=== PATIENT | male | born 1950 | race Hispanic/Latino ===

== ENCOUNTER → 2018-08-10 | Outpatient (CLI) | payer OTHER, MEDICARE ==
[~2018-08-10] MED LIST: ACET-2123 PO; ADV250 IH; AEC81 PO; ATOR40TA71 PO; CLOP75TA32 PO; DULO30CA51 PO; FOLI1TAB15 PO; FURO-152 PO; ISOS30TA6 PO; MAGN400T6 PO; METO25TA6 PO; NITR0.4T SL; PANT40TA25 PO; POTA10TA14 PO; PRED20TA3 PO; TAMS-1 PO; THIA100T75 PO
[2018-08-10 16:11] LABS: CREATININE 0.7 mg/dL (0.5-1.5)
== END | disposition home or self-care (01) ==
LOC: LAB 15:23
PROVIDERS: ATTEND Internal Medicine
DX: J44.9 Chronic obstructive pulmonary disease, unspecified (principal)
CPT/HCPCS: 36415; 82565; 84520

== ENCOUNTER → 2018-08-14 | Outpatient (CLI) | payer OTHER, MEDICARE ==
[~2018-08-14] MED LIST changes: +ISOVUE-370 50ML VIAL IV ONE
== END | disposition home or self-care (01) ==
LOC: OIH 10:26
PROVIDERS: ATTEND Internal Medicine
DX: J44.9 Chronic obstructive pulmonary disease, unspecified (principal); J84.10 Pulmonary fibrosis, unspecified; I51.7 Cardiomegaly; I70.0 Atherosclerosis of aorta; N20.0 Calculus of kidney; M47.894 Other spondylosis, thoracic region; I10 Essential (primary) hypertension; E78.5 Hyperlipidemia, unspecified; I25.10 Atherosclerotic heart disease of native coronary artery without angina pectoris
CPT/HCPCS: 71260; Q9967

== ENCOUNTER → 2018-10-24 | Outpatient (CLI) | payer OTHER, MEDICARE ==
[~2018-10-24] MED LIST changes: -ISOVUE-370 50ML VIAL IV ONE
[2018-10-24 13:52] LABS: CREATININE 0.7 mg/dL (0.5-1.5); POTASSIUM 4.3 mmol/L (3.5-5.1)
== END | disposition home or self-care (01) ==
LOC: LAB 13:12
PROVIDERS: ATTEND Internal Medicine
DX: I11.9 Hypertensive heart disease without heart failure (principal)
CPT/HCPCS: 36415; 80048

== ENCOUNTER → 2018-11-29 | Outpatient (CLI) | payer OTHER, MEDICARE | END | disposition home or self-care (01) | LOC: RAH 09:05 | PROVIDERS: ATTEND Internal Medicine | DX: K76.89 Other specified diseases of liver (principal) | CPT/HCPCS: 76705 ==

== ENCOUNTER → 2019-01-25 | Outpatient (CLI) | payer OTHER, MEDICARE ==
[2019-01-25 12:40] LABS: BASOPHILS % (AUTO) 0.6 % (0.0-5.0); HEMATOCRIT 49.8 % (42-54); LYMPHOCYTES % (AUTO) 34.3 % (21.0-51.0); MEAN CORPUSCULAR HGB CONC 33.5 g/dL (32.0-36.0); MEAN CORPUSCULAR VOLUME 95.5 fL (79-99); NEUTROPHILS % (AUTO) 57.1 % (40.0-77.0); NUCLEATED RED BLOOD CELLS 0.1 % (0.0-0.19); PLATELET COUNT (AUTO) 209 K/uL (130-400); RED BLOOD CELL COUNT(AUTO) 5.22 MIL/uL (4.50-6.20); RED CELL DISTRIBUTION WIDTH 13.2 % (11.0-15.5); WHITE BLOOD COUNT (AUTO) 5.5 K/uL (4.8-10.8)
[2019-01-25 13:08] LABS: ALBUMIN 3.6 g/dL (3.5-5.0); BILIRUBIN,TOTAL 0.5 mg/dL (0.2-1.0); CREATININE 0.8 mg/dL (0.5-1.5); POTASSIUM 3.9 mmol/L (3.5-5.1); THYROID STIMULATING HORMONE 0.57 uIU/mL (0.36-3.74); TOTAL PROTEIN, SERUM 7.1 g/dL (6.0-8.3)
== END | disposition home or self-care (01) ==
LOC: LAB 12:08
PROVIDERS: ATTEND Internal Medicine
DX: I11.9 Hypertensive heart disease without heart failure (principal); E78.2 Mixed hyperlipidemia; N52.9 Male erectile dysfunction, unspecified; R53.83 Other fatigue; F32.9 Major depressive disorder, single episode, unspecified; I25.119 Atherosclerotic heart disease of native coronary artery with unspecified angina pectoris; N40.1 Benign prostatic hyperplasia with lower urinary tract symptoms; Z72.0 Tobacco use
CPT/HCPCS: 36415; 80053; 80061; 84153; 84443; 85025

== ENCOUNTER → 2019-06-26 | Outpatient (CLI) | payer OTHER, MEDICARE ==
[~2019-06-26] MED LIST changes: -DULO30CA51 PO; +DULO30CA52 PO
[2019-06-26 11:32] LABS: BASOPHILS % (AUTO) 0.6 % (0.0-5.0); EOSINOPHILS % (AUTO) 2.6 % (0.0-8.0); HEMATOCRIT 46.9 % (42-54); LYMPHOCYTES % (AUTO) 22.8 % (21.0-51.0); MEAN CORPUSCULAR HEMOGLOBIN 32.8 pg (27.0-33.0); MEAN CORPUSCULAR HGB CONC 34.1 g/dL (32.0-36.0); MEAN CORPUSCULAR VOLUME 96.4 fL (79-99); MONOCYTES % (AUTO) 4.9 % (3.0-13.0); NEUTROPHILS % (AUTO) 69.1 % (40.0-77.0); PLATELET COUNT (AUTO) 188 K/uL (130-400); RED BLOOD CELL COUNT(AUTO) 4.87 MIL/uL (4.50-6.20); RED CELL DISTRIBUTION WIDTH 13.3 % (11.0-15.5); WHITE BLOOD COUNT (AUTO) 9.6 K/uL (4.8-10.8)
[2019-06-26 11:55] LABS: ALBUMIN 3.1 g/dL (3.5-5.0); BILIRUBIN,TOTAL 0.8 mg/dL (0.2-1.0); CREATININE 0.7 mg/dL (0.5-1.5); POTASSIUM 3.5 mmol/L (3.5-5.1); THYROID STIMULATING HORMONE 0.76 uIU/mL (0.36-3.74); TOTAL PROTEIN, SERUM 6.4 g/dL (6.0-8.3)
== END | disposition home or self-care (01) ==
LOC: LAB 10:57
PROVIDERS: ATTEND Internal Medicine
DX: I25.10 Atherosclerotic heart disease of native coronary artery without angina pectoris (principal); I11.9 Hypertensive heart disease without heart failure; E78.2 Mixed hyperlipidemia; R53.83 Other fatigue; N52.9 Male erectile dysfunction, unspecified; N40.0 Benign prostatic hyperplasia without lower urinary tract symptoms
CPT/HCPCS: 36415; 80053; 80061; 82270; 84153; 84443; 85025

== ENCOUNTER → 2019-06-28 | Outpatient (CLI) | payer OTHER, MEDICARE | END | disposition home or self-care (01) | LOC: LAB 11:30 | PROVIDERS: ATTEND Internal Medicine | DX: R19.7 Diarrhea, unspecified (principal) | CPT/HCPCS: 83630; 87046; 87177 ==

== ENCOUNTER → 2020-07-03 | Outpatient (CLI) | payer OTHER, MEDICARE ==
[~2020-07-03] MED LIST changes: -MAGN400T6 PO; +MAGN400T8 PO; -PANT40TA25 PO; +PANT40TA54 PO
[2020-07-03 11:15] LABS: HEMOGLOBIN A1C 6.1 % (4.0-6.0)
[2020-07-03 11:20] LABS: BASOPHILS % (AUTO) 1.1 % (0.0-5.0); EOSINOPHILS % (AUTO) 2.5 % (0.0-8.0); LYMPHOCYTES % (AUTO) 30.9 % (21.0-51.0); MEAN CORPUSCULAR HEMOGLOBIN 32.2 pg (27.0-33.0); MEAN CORPUSCULAR HGB CONC 34.7 g/dL (32.0-36.0); MEAN CORPUSCULAR VOLUME 92.7 fL (79-99); MONOCYTES % (AUTO) 6.8 % (3.0-13.0); NEUTROPHILS % (AUTO) 58.2 % (40.0-77.0); PLATELET COUNT (AUTO) 205 K/uL (130-400); RED CELL DISTRIBUTION WIDTH 11.9 % (11.0-15.5); WHITE BLOOD COUNT (AUTO) 6.5 K/uL (4.8-10.8)
[2020-07-03 11:23] LABS: ALBUMIN 3.7 g/dL (3.5-5.0); BILIRUBIN,TOTAL 0.7 mg/dL (0.2-1.0); CREATININE 0.7 mg/dL (0.5-1.5); POTASSIUM 4.2 mmol/L (3.5-5.1); TOTAL PROTEIN, SERUM 7.6 g/dL (6.0-8.3)
== END | disposition home or self-care (01) ==
LOC: LAB 10:13
PROVIDERS: ATTEND Internal Medicine
DX: I11.9 Hypertensive heart disease without heart failure (principal); E78.2 Mixed hyperlipidemia; R73.01 Impaired fasting glucose; N40.1 Benign prostatic hyperplasia with lower urinary tract symptoms; N52.9 Male erectile dysfunction, unspecified
CPT/HCPCS: 36415; 80053; 80061; 82043; 83036; 84153; 85025

== ENCOUNTER → 2020-08-04 | Outpatient (CLI) | payer OTHER, MEDICARE ==
[~2020-08-04] MED LIST changes: +REGADENOSON 0.4 MG/5 ML PF SYG IVP SCH
== END | disposition home or self-care (01) ==
LOC: SHCH 08:19
PROVIDERS: ATTEND Internal Medicine Cardiovascular Disease
DX: R07.9 Chest pain, unspecified (principal)
CPT/HCPCS: 78452; 93017; 96374; A9500 ×2; J2785

== ENCOUNTER → 2021-02-02 | Outpatient (CLI) | payer OTHER, MEDICARE ==
[~2021-02-02] MED LIST changes: -ISOS30TA6 PO; +ISOS30TA92 PO; -REGADENOSON 0.4 MG/5 ML PF SYG IVP SCH
[2021-02-02 10:45] LABS: BASOPHILS % (AUTO) 0.8 % (0.0-5.0); EOSINOPHILS % (AUTO) 1.9 % (0.0-8.0); HEMATOCRIT 50.1 % (42-54); LYMPHOCYTES % (AUTO) 36.5 % (21.0-51.0); MEAN CORPUSCULAR HEMOGLOBIN 32.4 pg (27.0-33.0); MEAN CORPUSCULAR HGB CONC 33.9 g/dL (32.0-36.0); MEAN CORPUSCULAR VOLUME 95.6 fL (79-99); MONOCYTES % (AUTO) 7.6 % (3.0-13.0); NEUTROPHILS % (AUTO) 52.8 % (40.0-77.0); PLATELET COUNT (AUTO) 175 K/uL (130-400); RED BLOOD CELL COUNT(AUTO) 5.24 MIL/uL (4.50-6.20); RED CELL DISTRIBUTION WIDTH 12.6 % (11.0-15.5); WHITE BLOOD COUNT (AUTO) 5.2 K/uL (4.8-10.8)
[2021-02-02 10:54] LABS: HEMOGLOBIN A1C 6.1 % (4.0-6.0)
[2021-02-02 10:59] LABS: ALBUMIN 3.3 g/dL (3.5-5.0); BILIRUBIN,TOTAL 0.6 mg/dL (0.2-1.0); CREATININE 0.8 mg/dL (0.5-1.5); POTASSIUM 4.4 mmol/L (3.5-5.1); TOTAL PROTEIN, SERUM 6.7 g/dL (6.0-8.3)
== END | disposition home or self-care (01) ==
LOC: LAB 09:45
PROVIDERS: ATTEND Internal Medicine
DX: Z00.00 Encounter for general adult medical examination without abnormal findings (principal); R73.01 Impaired fasting glucose; E78.2 Mixed hyperlipidemia
CPT/HCPCS: 36415; 80053; 80061; 82043; 83036; 85025

== ENCOUNTER → 2021-03-16 | Outpatient (CLI) | payer OTHER, MEDICARE | LOC: DAH 10:00 → EDSTATUS 03-24 07:00 | PROVIDERS: ATTEND Internal Medicine Gastroenterology | DX: Z01.818 Encounter for other preprocedural examination (principal); Z86.010 Personal history of colon polyps; K29.90 Gastroduodenitis, unspecified, without bleeding; K31.89 Other diseases of stomach and duodenum; K21.9 Gastro-esophageal reflux disease without esophagitis; Z20.822 Contact with and (suspected) exposure to COVID-19 | CPT/HCPCS: C9803; U0003 ==

== ENCOUNTER → 2021-03-31 | Outpatient (CLI) | payer OTHER, MEDICARE | END | disposition home or self-care (01) | LOC: RAH 14:33 | PROVIDERS: ATTEND Nurse Practitioner Family | DX: L08.9 Local infection of the skin and subcutaneous tissue, unspecified (principal); M79.89 Other specified soft tissue disorders | CPT/HCPCS: 73590 ==

== ENCOUNTER 2021-04-21 07:21 | Day surgery (SDC) | payer OTHER, MEDICARE ==
[~2021-04-21] VITALS: Ht 162.6 cm; Wt 77.1 kg
[~2021-04-21 07:21] MED LIST changes: -ACET-2123 PO; +ACET325T51 PO; -ADV250 IH; -ATOR40TA71 PO; -DULO30CA52 PO; +FLUO20TA29 PO; -FOLI1TAB15 PO; +LOSA25TA41 PO; -MAGN400T8 PO; +METO100T14 PO; -METO25TA6 PO; -POTA10TA14 PO; -PRED20TA3 PO; +ROSU40TA21 PO; +SODIUM CHLORIDE 0.9% 1000ML 1,000 ML IV ONE; -THIA100T75 PO
[2021-04-21 07:48] VITALS: BP 128/73
== END 2021-04-21 09:00 | disposition home or self-care (01) ==
LOC: ENDO 07:21 → DAH 07:21 → ENDO 09:00
PROVIDERS: ATTEND Internal Medicine Gastroenterology
DX: Z86.010 Personal history of colon polyps (principal); Z20.822 Contact with and (suspected) exposure to COVID-19; Z53.8 Procedure and treatment not carried out for other reasons; K21.9 Gastro-esophageal reflux disease without esophagitis; K29.90 Gastroduodenitis, unspecified, without bleeding; K31.89 Other diseases of stomach and duodenum; F32.9 Major depressive disorder, single episode, unspecified; I25.119 Atherosclerotic heart disease of native coronary artery with unspecified angina pectoris; E78.5 Hyperlipidemia, unspecified; J45.909 Unspecified asthma, uncomplicated; J84.10 Pulmonary fibrosis, unspecified; Z79.01 Long term (current) use of anticoagulants; Z79.82 Long term (current) use of aspirin; Z79.899 Other long term (current) drug therapy; Z82.3 Family history of stroke; Z83.3 Family history of diabetes mellitus; Z98.890 Other specified postprocedural states
CPT/HCPCS: 87635; 93005; A4215; A4221; A4222; A4606; A4663; C9803; J7030

== ENCOUNTER 2021-06-23 08:10 | Day surgery (SDC) | payer OTHER, MEDICARE ==
[~2021-06-23] VITALS: Ht 160 cm; Wt 75.7 kg
[~2021-06-23 08:10] MED LIST changes: +0.9%NACL 1000ML 1,000 ML IV ONE; -SODIUM CHLORIDE 0.9% 1000ML 1,000 ML IV ONE
[2021-06-23 09:00] VITALS: BP 122/74
[2021-06-23] MEDS ORDERED: BACTSS PO (09:16)
[2021-06-23] MEDS ORDERED: ALBU8.5H8 IH (09:17)
[2021-06-23] MEDS ORDERED: PROPOFOL 10 MG/ML 20ML VIAL IV ONE (09:51)
[2021-06-23 10:15] VITALS: BP 120/97
[2021-06-23 10:20] VITALS: BP 97/45
[2021-06-23 10:45] VITALS: BP 128/73
[2021-06-23 10:52] VITALS: BP 130/70
[2021-06-23] MEDS ORDERED: IPRATROPIUM/ALBUTEROL SULFATE 3 ML SOLUTION IH SCH (11:00)
== END 2021-06-23 11:01 | disposition home or self-care (01) ==
LOC: ENDO 08:10 → DAH 08:10 → ENDO 11:01
PROVIDERS: ATTEND Internal Medicine Gastroenterology
DX: Z12.11 Encounter for screening for malignant neoplasm of colon (principal); Z20.822 Contact with and (suspected) exposure to COVID-19; K44.9 Diaphragmatic hernia without obstruction or gangrene; K64.0 First degree hemorrhoids; K29.50 Unspecified chronic gastritis without bleeding; K31.89 Other diseases of stomach and duodenum; K21.00 Gastro-esophageal reflux disease with esophagitis, without bleeding; K29.90 Gastroduodenitis, unspecified, without bleeding; K57.30 Diverticulosis of large intestine without perforation or abscess without bleeding; M79.7 Fibromyalgia; I25.119 Atherosclerotic heart disease of native coronary artery with unspecified angina pectoris; F32.9 Major depressive disorder, single episode, unspecified; E78.5 Hyperlipidemia, unspecified; J84.10 Pulmonary fibrosis, unspecified; Z86.010 Personal history of colon polyps; Z79.01 Long term (current) use of anticoagulants
CPT/HCPCS: 43239; 87635; 88305; 88342; 94640; A4215 ×2; A4221; A4222; A4223; A4606; A4620; A4657; A4663; C9803; G0105; J2704; J7030; 45378

== ENCOUNTER → 2022-02-11 | Outpatient (CLI) | payer OTHER, MEDICARE ==
[~2022-02-11] MED LIST changes: -0.9%NACL 1000ML 1,000 ML IV ONE; -ACET325T51 PO; +ALBU8.5H8 IH; +BACTSS PO
[2022-02-11 10:58] LABS: BASOPHILS % (AUTO) 0.9 % (0.0-5.0); EOSINOPHILS % (AUTO) 1.9 % (0.0-8.0); HEMATOCRIT 49.5 % (42-54); LYMPHOCYTES % (AUTO) 29.4 % (21.0-51.0); MEAN CORPUSCULAR HEMOGLOBIN 32.7 pg (27.0-33.0); MEAN CORPUSCULAR HGB CONC 34.1 g/dL (32.0-36.0); MEAN CORPUSCULAR VOLUME 95.7 fL (79-99); MONOCYTES % (AUTO) 7.3 % (3.0-13.0); NEUTROPHILS % (AUTO) 60.1 % (40.0-77.0); PLATELET COUNT (AUTO) 175 K/uL (130-400); RED BLOOD CELL COUNT(AUTO) 5.17 MIL/uL (4.50-6.20); RED CELL DISTRIBUTION WIDTH 12.8 % (11.0-15.5); WHITE BLOOD COUNT (AUTO) 6.7 K/uL (4.8-10.8)
[2022-02-11 11:11] LABS: ALBUMIN 3.6 g/dL (3.5-5.0); BILIRUBIN,TOTAL 0.8 mg/dL (0.2-1.0); CREATININE 0.7 mg/dL (0.5-1.5); POTASSIUM 3.7 mmol/L (3.5-5.1); TOTAL PROTEIN, SERUM 7.2 g/dL (6.0-8.3)
== END | disposition home or self-care (01) ==
LOC: LAB 10:10
PROVIDERS: ATTEND Internal Medicine
DX: N40.1 Benign prostatic hyperplasia with lower urinary tract symptoms (principal); I11.0 Hypertensive heart disease with heart failure; E78.2 Mixed hyperlipidemia; R73.01 Impaired fasting glucose; R73.03 Prediabetes
CPT/HCPCS: 36415; 80053; 80061; 82043; 83036; 84153; 84402; 84403; 85025

== ENCOUNTER 2022-07-01 07:18 | Day surgery (SDC) | payer OTHER, MEDICARE ==
[2022-06-29 10:05] LABS: BASOPHILS % (AUTO) 0.5 % (0.0-5.0); EOSINOPHILS % (AUTO) 2.8 % (0.0-8.0); HEMATOCRIT 48.7 % (42-54); LYMPHOCYTES % (AUTO) 29.4 % (21.0-51.0); MEAN CORPUSCULAR HGB CONC 33.9 g/dL (32.0-36.0); MEAN CORPUSCULAR VOLUME 97.4 fL (79-99); MONOCYTES % (AUTO) 6.5 % (3.0-13.0); NEUTROPHILS % (AUTO) 60.5 % (40.0-77.0); PLATELET COUNT (AUTO) 168 K/uL (130-400); RED CELL DISTRIBUTION WIDTH 12.9 % (11.0-15.5); WHITE BLOOD COUNT (AUTO) 7.4 K/uL (4.8-10.8)
[2022-06-29 10:14] LABS: APPEARANCE,URINE CLEAR (CLEAR); BILIRUBIN,URINE NEGATIVE (NEGATIVE); COLOR,URINE YELLOW (YELLOW); GLUCOSE, URINE (UA) NEGATIVE (NEGATIVE); KETONES,URINE NEGATIVE (NEGATIVE); LEUKOCYTE ESTERASE ,URINE NEGATIVE (NEGATIVE); NITRATE,URINE NEGATIVE (NEGATIVE); OCCULT BLOOD,URINE NEGATIVE (NEGATIVE); PH,URINE 5.5 (5.0-8.0); PROTEIN,URINE NEGATIVE (NEGATIVE); UROBILINOGEN,URINE 0.2 mg/dL (0.2-1.0)
[2022-06-29 10:15] LABS: CREATININE 0.8 mg/dL (0.5-1.5); POTASSIUM 3.7 mmol/L (3.5-5.1)
[2022-06-29 10:19] LABS: PROTHROMBIN TIME 10.9 SEC (9.6-11.6)
[2022-06-29 10:21] LABS: PARTIAL THROMBOPLASTIN TIME 27.3 SEC (26.3-35.5)
[2022-06-30 11:13] VITALS: BP 143/77
[2022-07-01] VITALS (10 sets, daily range): BP systolic 114–163; BP diastolic 69–83
[~2022-07-01] VITALS: Ht 167.6 cm; Wt 79.4 kg
[~2022-07-01 07:18] MED LIST changes: -BACTSS PO; +CETI10TA57 PO; +DULO30CA52 PO; +FAMO20TA8 PO; -FLUO20TA29 PO; -ISOS30TA92 PO; +METO-409 PO; -METO100T14 PO; +NINT100C PO; +RANO10005 PO; +SOLU-MEDROL 125MG VIAL IVP SCH; +advair IH
[2022-07-01] MEDS ORDERED: 0.9%NACL 1000ML 1,000 ML IV ONE (10:09)
[2022-07-01] MEDS ORDERED: LIDOCAINE HCL 1% 20 ML VIAL ONE (11:29)
[2022-07-01] MEDS ORDERED: NITROGLYCERIN 50MG VIAL ONE (11:29)
[2022-07-01] MEDS ORDERED: HEPARIN 10,000 UNIT/10ML (1,000 UNIT/ML) VIAL ONE (11:29)
[2022-07-01] MEDS ORDERED: IOHEXOL-350 50ML VIAL IV ONE (11:29)
[2022-07-01] MEDS ORDERED: MIDAZOLAM HCL 1 MG/ML 2ML VIAL ONE (11:30)
[2022-07-01] MEDS ORDERED: FENTANYL CITRATE PF 50 MCG/1 ML 2ML VIAL ONE (11:30)
[2022-07-01] MEDS ORDERED: IOHEXOL 350 MG/ML 100ML INFUS..BTL IV ONE (11:30)
[2022-07-01] MEDS ORDERED: DiphenhydrAMINE HCL 50 MG/ML VIAL ONE (11:42)
[2022-07-01] MEDS ORDERED: DEXTROSE 50%-WATER 50 ML DISP.SYRIN IV PRN (12:30)
[2022-07-01] MEDS ORDERED: GLUCAGON 1MG KIT 1 MG ML IM PRN (12:30)
[2022-07-01] MEDS ORDERED: 0.9%NACL 1000ML 1,000 ML IV SCH (12:30)
== END 2022-07-01 16:10 | disposition home or self-care (01) ==
LOC: DAH 07:18
PROVIDERS: ATTEND Internal Medicine Cardiovascular Disease
DX: I25.118 Atherosclerotic heart disease of native coronary artery with other forms of angina pectoris (principal); J84.10 Pulmonary fibrosis, unspecified; J98.4 Other disorders of lung; I10 Essential (primary) hypertension; E78.5 Hyperlipidemia, unspecified; I25.2 Old myocardial infarction; Z95.5 Presence of coronary angioplasty implant and graft; Z82.49 Family history of ischemic heart disease and other diseases of the circulatory system; Z79.82 Long term (current) use of aspirin; Z79.01 Long term (current) use of anticoagulants; Z79.899 Other long term (current) drug therapy; Z98.890 Other specified postprocedural states
CPT/HCPCS: 80048; 85025; 85610; 85730; 81003; 36415; 71045; 93005; 93458; C1894 ×2; C1760; J1200; J3010; J7030; J2930; J2250; J1644; J3490; Q9967; A4215; A4222; A4221; A4663; A4216; A4606; Q9965; A4223 ×3; 99156; 99157

== ENCOUNTER → 2023-02-07 | Outpatient (CLI) | payer OTHER, MEDICARE ==
[~2023-02-07] MED LIST changes: -METO-409 PO; -SOLU-MEDROL 125MG VIAL IVP SCH
[2023-02-07 13:03] LABS: BASOPHILS % (AUTO) 0.4 % (0.0-5.0); EOSINOPHILS % (AUTO) 0.3 % (0.0-8.0); HEMATOCRIT 52.2 % (42-54); LYMPHOCYTES % (AUTO) 15.9 % (21.0-51.0); MEAN CORPUSCULAR HEMOGLOBIN 31.7 pg (27.0-33.0); MEAN CORPUSCULAR HGB CONC 33.1 g/dL (32.0-36.0); MEAN CORPUSCULAR VOLUME 95.8 fL (79-99); MONOCYTES % (AUTO) 3.9 % (3.0-13.0); NEUTROPHILS % (AUTO) 77.9 % (40.0-77.0); PLATELET COUNT (AUTO) 199 K/uL (130-400); RED BLOOD CELL COUNT(AUTO) 5.45 MIL/uL (4.50-6.20); WHITE BLOOD COUNT (AUTO) 7.6 K/uL (4.8-10.8)
[2023-02-07 13:11] LABS: HEMOGLOBIN A1C 6.1 % (4.0-6.0)
[2023-02-07 13:21] LABS: ALBUMIN 3.5 g/dL (3.5-5.0); CREATININE 0.8 mg/dL (0.5-1.5); POTASSIUM 4.2 mmol/L (3.5-5.1); TOTAL PROTEIN, SERUM 7.2 g/dL (6.0-8.3)
== END | disposition home or self-care (01) ==
LOC: LAB 12:11
PROVIDERS: ATTEND Clinical Nurse Specialist Family Health
DX: I11.0 Hypertensive heart disease with heart failure (principal); Z00.00 Encounter for general adult medical examination without abnormal findings; Z79.899 Other long term (current) drug therapy; R73.02 Impaired glucose tolerance (oral); N40.0 Benign prostatic hyperplasia without lower urinary tract symptoms
CPT/HCPCS: 36415; 80053; 80061; 82043; 83036; 84153; 84402; 84403; 85025

== ENCOUNTER → 2023-06-30 | Outpatient (CLI) | payer OTHER, MEDICARE | END | disposition home or self-care (01) | LOC: SHCH 13:52 | PROVIDERS: ATTEND Internal Medicine Cardiovascular Disease | DX: I08.3 Combined rheumatic disorders of mitral, aortic and tricuspid valves (principal); I11.9 Hypertensive heart disease without heart failure; I25.10 Atherosclerotic heart disease of native coronary artery without angina pectoris; E78.5 Hyperlipidemia, unspecified | CPT/HCPCS: 93306 ==

== ENCOUNTER 2023-08-26 11:36 | Emergency (ER) | payer OTHER, MEDICARE ==
[~2023-08-26] VITALS: Ht 162.6 cm; Wt 78.5 kg
[2023-08-26] MEDS ORDERED: ACETAMINOPHEN 325 MG TAB PO ONE (12:30)
[2023-08-26] MEDS ORDERED: ASPIRIN 325MG TAB PO ONE (12:30)
[2023-08-26 12:36] LABS: BASOPHILS # (AUTO) 0.07 K/uL (0.00-0.20); BASOPHILS % (AUTO) 0.5 % (0.0-5.0); EOSINOPHILS # (AUTO) 0.03 K/uL (0.00-0.70); EOSINOPHILS % (AUTO) 0.2 % (0.0-8.0); HEMATOCRIT 46.3 % (42-54); IMMATURE GRANULOCYTE ABSOLUTE 0.05 K/uL (0-1); LYMPHOCYTES # (AUTO) 1.3 K/uL (1.0-4.8); LYMPHOCYTES % (AUTO) 9.5 % (21.0-51.0); MEAN CORPUSCULAR HEMOGLOBIN 31.8 pg (27.0-33.0); MEAN CORPUSCULAR HGB CONC 33.5 g/dL (32.0-36.0); MEAN CORPUSCULAR VOLUME 95.1 fL (79-99); MONOCYTES # (AUTO) 0.8 K/uL (0.1-1.0); NEUTROPHILS # (AUTO) 11.7 K/uL (1.8-7.7); NEUTROPHILS % (AUTO) 83.4 % (40.0-77.0); PLATELET COUNT (AUTO) 176 K/uL (130-400); RED BLOOD CELL COUNT(AUTO) 4.87 MIL/uL (4.50-6.20); RED CELL DISTRIBUTION WIDTH 12.6 % (11.0-15.5)
[2023-08-26 12:54] LABS: RAPID GROUP A STREP negative (NEGATIVE)
[2023-08-26 13:06] LABS: INFLUENZA TYPE A Negative For Type A (NEGATIVE); INFLUENZA TYPE B Negative For Type B (NEGATIVE)
[2023-08-26 13:07] LABS: COVID19 (SARS ANTIGEN RAPID) PRESUMPTIVE NEGATIVE (NEGATIVE)
[2023-08-26 13:24] VITALS: TEMP 100.3
[2023-08-26 13:45] LABS: ALBUMIN 3.4 g/dL (3.5-5.0); BILIRUBIN,TOTAL 1.3 mg/dL (0.2-1.0); CREATININE 0.7 mg/dL (0.5-1.5); POTASSIUM 3.8 mmol/L (3.5-5.1); TOTAL PROTEIN, SERUM 6.9 g/dL (6.0-8.3)
[2023-08-26 13:54] LABS: B-TYPE NATRIURETIC PEPTIDE 20 pg/mL (0-100)
[2023-08-26] MEDS ORDERED: AZIT500T2 PO (14:18)
[2023-08-26] MEDS ORDERED: BENZ-39 PO (14:18)
[2023-08-26 15:26] VITALS: BP 152/75; PULSE 88; RESP 26; O2SAT 95
[2023-08-26 15:47] LABS: APPEARANCE,URINE CLEAR (CLEAR); BILIRUBIN,URINE NEGATIVE (NEGATIVE); COLOR,URINE LIGHT-YELLOW (YELLOW); GLUCOSE, URINE (UA) NEGATIVE (NEGATIVE); KETONES,URINE NEGATIVE (NEGATIVE); LEUKOCYTE ESTERASE ,URINE NEGATIVE Leu/uL (NEGATIVE); NITRATE,URINE NEGATIVE (NEGATIVE); OCCULT BLOOD,URINE NEGATIVE (NEGATIVE); PH,URINE 5.5 (5.0-8.0); PROTEIN,URINE NEGATIVE (NEGATIVE); UROBILINOGEN,URINE 0.2 mg/dL (0.2-1.0)
[2023-08-26 15:54] LABS: ADD UA MICROSCOPIC NO
== END 2023-08-26 15:42 | disposition home or self-care (01) ==
LOC: EDH 11:36
DX: J18.9 Pneumonia, unspecified organism (principal); M94.0 Chondrocostal junction syndrome [Tietze]; E78.00 Pure hypercholesterolemia, unspecified; I11.0 Hypertensive heart disease with heart failure; I50.9 Heart failure, unspecified; Z20.822 Contact with and (suspected) exposure to COVID-19; Z79.82 Long term (current) use of aspirin; Z79.899 Other long term (current) drug therapy; Z95.5 Presence of coronary angioplasty implant and graft; Z88.8 Allergy status to other drugs, medicaments and biological substances; Z98.890 Other specified postprocedural states
CPT/HCPCS: 36415; 71045; 80053; 81003; 83880; 84484; 85025; 85730; 87040; 87426; 87804; 87880; 93005

== ENCOUNTER 2024-12-18 11:05 | Inpatient (IN) | payer OTHER ==
[~2024-12-18] VITALS: Ht 162.6 cm; Wt 73.9 kg
[~2024-12-18 11:05] MED LIST changes: +BENZ-39 PO; +DILT120C89 PO; +ISOS30TA92 PO; +LOSA-418 PO; -LOSA25TA41 PO; -ROSU40TA21 PO; +ROSU40TA88 PO; +TICA90TA PO
--- NOTE | 2024-12-18 11:13 | ERN ---
ED Note History of Present Illness Stated Complaint: CHEST PAIN Chief Complaint: Chest Pain Time Seen by MD: 11:07 Dictation: PATIENT IS A 74-YEAR-OLD MALE COMING IN TODAY WITH COMPLAINTS OF ONSET OF LEFT ANTERIOR CHEST PAIN THAT DOES NOT RADIATE WITH NAUSEA ONSET3 HOURS PRIOR TO ARRIVAL. HE STATES HE HAS BEEN SHORT OF BREATH FOR SEVERAL DAYS AND HAS CURRENTLY OXYGEN ON IT3 L PER NASAL CANNULA FROM HOME O2. HE DENIES FEVER CHILLS BACK PAIN JAW PAIN ARM PAIN. 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 Prov:ALANA LEE MEDICATION CARE MANAGER 04/20/24 Benzonatate (Tessalon Perles) 100 Mg Cap, 100 MG PO TID PRN for COUGH for 7 Days, #21 CAP 0 Refills Prov:CAROLINE RAMOS DO 08/26/23 Reported Medications Rosuvastatin Calcium (Rosuvastatin Calcium) 40 Mg Tablet, 40 MG PO DAILY, TAB 04/18/24 Isosorbide Mononitrate (Isosorbide Mononitrate ER) 30 Mg Tab.er.24h, 30 MG PO DAILY, TAB 04/18/24 Famotidine (Famotidine) 20 Mg Tablet, 20 MG PO HS, TAB 06/30/22 Ranolazine (Ranolazine ER) 1,000 Mg Tab.er.12h, 1000 MG PO BID, TAB 06/30/22 [advair] No Conflict Check, 2 PUFF IH BID PRN for SHORTNESS OF BREATH/WHEEZING 06/30/22 Duloxetine HCl (Duloxetine HCl) 30 Mg Capsule.dr, 30 MG PO HS, CAP 06/30/22 Nintedanib Esylate (Ofev) 100 Mg Capsule, 100 MG PO BID, CAP 06/30/22 Cetirizine HCl (Cetirizine HCl) 10 Mg Tablet, 10 MG PO AM, TAB 06/30/22 Albuterol Sulfate (Proair Hfa) 8.5 Gm Hfa.aer.ad, 2 PUFF IH AD 06/23/21 Rosuvastatin Calcium (Rosuvastatin Calcium) 40 Mg Tablet, 40 MG PO AM, TAB 04/20/21 Nitroglycerin (Nitrostat) 0.4 Mg Tab.subl, 0.4 MG SL AD, TAB.SL 09/06/16 Furosemide (Lasix) 20 Mg Tablet, 20 MG PO DAILY, TAB 09/06/16 Aspirin (ASPIRIN 81 MG ECTAB) 81 Mg Ectab, 81 MG PO DAILY, TAB.EC 09/06/16 Pantoprazole Sodium (Pantoprazole Sodium) 40 Mg Tablet.dr, 40 MG PO AM, TAB 09/06/16 Clopidogrel Bisulfate (Clopidogrel) 75 Mg Tablet, 75 MG PO AM, TAB 09/06/16 Tamsulosin HCl (Flomax) 0.4 Mg/Cap Cap.er.24h, 0.4 MG PO DAILY, CAPSULE.DR 09/06/16 Past Medical History Past Medical History: Heart Disease, Hypertension, Other Additional Past Medical Hx: HX OF PULMONARY FIBROSIS Surgical History: Other Surgical History Other: HEART ATTACK X 2 Social History: Smokers, Lives alone RN Note Reviewed/Agreed w/PFSH: Yes Review of System Dictation CONSTITUTIONAL: NEGATIVE EXCEPT FOR HPI HEAD/FACE: NEGATIVE EXCEPT FOR HPI EENT: NEGATIVE EXCEPT FOR HPI RESPIRATORY: NEGATIVE EXCEPT FOR HPI SHORT OF BREATH LEFT LATERAL CHEST PAIN GASTROINTESTINAL/ABDOMINAL: NEGATIVE EXCEPT FOR HPI NAUSEA GENITOURINARY: NEGATIVE EXCEPT FOR HPI MUSCULOSKELETAL: NEGATIVE EXCEPT FOR HPI INTEGUMENTARY: NEGATIVE EXCEPT FOR HPI NEUROLOGICAL/PSYCH: NEGATIVE EXCEPT FOR HPI HEMATOLOGIC/LYMPHATIC: NEGATIVE EXCEPT FOR HPI ALL SYSTEMS NEGATIVE, EXCEPT NOTED ABOVE. 13 POINT REVIEW OF SYSTEMS ASSESSED AND ALL NEGATIVE EXCEPT FOR ABOVE. Initial Vital Sign VS Vital Signs Date Time Temp Pulse Resp B/P (MAP) Pulse Ox O2 Delivery O2 Flow Rate FiO2 12/18/24 11:06 98.8 90 18 75/41 93 Nasal Cannula 3.0 12/18/24 12:15 32 Physical Exam Dictation VITAL SIGNS REVIEWED GENERAL APPEARANCE: ALERT, ORIENTED X 3, MILD ACUTE DISTRESS, WELL DEVELOPED, NOURISHED. HEAD AND FACE: NON-TRAUMATIC. EYES: PERRL, PINK CONJUNCTIVAS, EYELID NO TRAUMA, ANTERIOR CHAMBER WITH ARCUS SENILIS. EARS: PINNAS INTACT AND NO SIGNS OF TRAUMA OR ERYTHEMA EAR CANALS CLEAR AND NO DISCHARGE TM NO ERYTHEMA NOSE: NO DISCHARGE, NO BLEEDING. OROPHARYNX: MOUTH NORMAL, TONGUE PINK, PHARYNX CLEAR,NO ERYTHEMA, TONSILS NO EXUDATES, NO ABSCESSES NOTED, MUCOUS MEMBRANE MOIST NECK: SUPPLE, NON-TENDER, NO THYROMEGALY, NO MASSES, NO JVD, NO BRUITS BREAST:DEFERRED CHEST:NO TENDERNESS, NO CREPITUS, NO PARADOXICAL MOVEMENT, NO RETRACTIONS LUNGS:CLEAR, WELL-VENTILATED, SYMMETRIC, NO RALES, NO WHEEZING, NO RHONCHI, NO STRIDOR, GOOD BREATH SOUNDS BILATERALLY HEART: REGULAR RATE, REGULAR RHYTHM, NO MURMUR, NO GALLOPS VASCULAR: NO PERIPHERAL EDEMA, ABDOMEN: SOFT, POSITIVE BOWEL SOUNDS, NONDISTENDED, NO GUARDING, NONTENDER, NO REBOUND, NO MASSES NO HEPATOMEGALY, NO SPLENOMEGALY, NO LOCK'S SIGN, NO HERNIAS. RECTAL: DEFERRED GENITAL: DEFERRED NEUROLOGICAL: NORMAL SPEECH, MOTOR FUNCTION INTACT, SENSORY FUNCTION INTACT MUSCULOSKELETAL: NECK NONTENDER, FULL RANGE OF MOTION, BACK NONTENDER, FULL RANGE OF MOTION, EXTREMITIES: NONTENDER, FULL RANGE OF MOTION SKIN: COLOR PINK, DRY, NO TURGOR, NO RASH, NO LACERATIONS, NO ABRASIONS, NO CONTUSIONS. LYMPHATIC: DEFERRED Results (Laboratory/Radiology) Laboratory/Radiology Laboratory Tests Test 12/18/24 11:37 White Blood Count 5.5 K/uL (4.8-10.8) Red Blood Count 4.57 MIL/uL (4.50-6.20) Hemoglobin 14.8 g/dL (14.0-18.0) Hematocrit 43.8 % (42-54) Mean Corpuscular Volume 95.8 fL (79-99) Mean Corpuscular Hemoglobin 32.4 pg (27.0-33.0) Mean Corpuscular Hemoglobin Concent 33.8 g/dL (32.0-36.0) Red Cell Distribution Width 12.9 % (11.0-15.5) Platelet Count 193 K/uL (130-400) Mean Platelet Volume 9.6 fL (7.5-10.5) Immature Granulocyte % (Auto) 0.7 % (0-1) Neutrophils (%) (Auto) 68.9 % (40.0-77.0) Lymphocytes (%) (Auto) 19.2 % (21.0-51.0) L Monocytes (%) (Auto) 7.5 % (3.0-13.0) Eosinophils (%) (Auto) 2.4 % (0.0-8.0) Basophils (%) (Auto) 1.3 % (0.0-5.0) Neutrophils # (Auto) 3.8 K/uL (1.8-7.7) Lymphocytes # (Auto) 1.1 K/uL (1.0-4.8) Monocytes # (Auto) 0.4 K/uL (0.1-1.0) Eosinophils # (Auto) 0.13 K/uL (0.00-0.70) Basophils # (Auto) 0.07 K/uL (0.00-0.20) Absolute Immature Granulocyte (auto 0.04 K/uL (0-1) Nucleated Red Blood Cells 0.0 % (0.0-0.19) Sodium Level 140 mmol/L (136-145) Potassium Level 3.7 mmol/L (3.5-5.1) Chloride Level 102 mmol/L (101-111) Carbon Dioxide Level 30 mmol/L (21-32) Blood Urea Nitrogen 11 mg/dL (7-18) Creatinine 0.9 mg/dL (0.5-1.3) Glomerular Filtration Rate Calc 90 mL/min (>90) Random Glucose 148 mg/dL (70-105) H Total Calcium 8.2 mg/dL (8.5-10.1) L Magnesium Level 1.60 mg/dL (1.80-2.40) L Troponin I High Sensitivity 25 ng/L (4-75) B-Type Natriuretic Peptide 16 pg/mL (0-100) Clinical Information: CHEST PAIN Comparison: None Findings: Pulmonary pattern is as before. No worrisome interval changes have taken place. Impression: Stable exam. Labs Reviewed?: Yes EKG Comment: EKG SINUS RHYTHM/HEART RATE 89/AXIS NORMAL/T-WAVE INVERSION LATERAL LEADS V4 THROUGH SIX REVIEW OF HISTORY OF EKG SHOWS NO SUCH T-WAVE INVERSION GOING BACK 2 YEARS NORMAL SINUS ED Course ED Course Orders Procedure Category Date Status Time Cbc With Differential LAB 12/18/24 Complete 11:09 B-Type Natriuretic LAB 12/18/24 Complete Peptide 11:09 Chest 1vw RAD 12/18/24 Resulted 11:09 12 Lead Ekg Tracing- EKG 12/18/24 Complete Technical 11:09 Magnesium LAB 12/18/24 Complete 11:09 Troponin I High LAB 12/18/24 Complete Sensitivity 11:09 Aspirin 325mg Tab PHA 12/18/24 Complete (Aspirin 325mg Tab) 11:30 Urinalysis Profile LAB 12/18/24 Logged 11:09 Basic Metabolic Panel LAB 12/18/24 Complete 11:09 Ondansetron 4mg Inj PHA 12/18/24 Complete (Zofran 4mg Inj) 11:30 Oxygen By Nc/Pulse Ox CPOE 12/18/24 Transmitted 11:09 0.9%Nacl 1000ml (Ns PHA 12/18/24 Complete 1000ml) 12:30 12 Lead Ekg Tracing- EKG 12/18/24 Complete Technical 12:05 Magnesium Oxide PHA 12/18/24 Complete (Mag-Ox) 15:30 0.9%Nacl 1000ml (Ns PHA 12/18/24 Complete 1000ml) 15:30 Acetaminophen 500mg PHA 12/18/24 Complete Tab (Tylenol 500mg T 16:00 Current Medications Medications (Trade) Dose Ordered Sig/Anne Route PRN Reason Start Time Stop Time Status Last Admin Dose Admin Acetaminophen (TYLenol 500MG TAB) 1,000 mg ONCE ONCE PO 12/18/24 16:00 12/18/24 16:01 DC Aspirin (Aspirin 325mg Tab) 325 mg ONCE ONCE PO 12/18/24 11:30 12/18/24 11:31 DC 12/18/24 11:44 Magnesium Oxide (Mag-Ox) 400 mg ONCE ONCE PO 12/18/24 15:30 12/18/24 15:31 DC 12/18/24 15:39 Ondansetron HCl (zoFRAN 4MG INJ) 4 mg ONCE ONCE IVP 12/18/24 11:30 12/18/24 11:31 DC 12/18/24 11:43 Sodium Chloride 1,000 ml @ 0 mls/hr ONCE ONCE IV 12/18/24 12:30 12/18/24 12:31 DC 12/18/24 13:57 Sodium Chloride 1,000 ml @ 0 mls/hr ONCE ONCE IV 12/18/24 15:30 12/18/24 15:31 DC 12/18/24 15:39 Vital Signs Date Time Temp Pulse Resp B/P (MAP) Pulse Ox O2 Delivery O2 Flow Rate FiO2 12/18/24 16:11 97.5 71 20 104/61 64 Nasal Cannula* 2 28 12/18/24 13:23 97.5 59 18 93/55 95 Nasal Cannula* 2 28 12/18/24 12:15 73 22 94/45 93 Nasal Cannula* 3 32 12/18/24 11:06 98.8 90 18 75/41 93 Nasal Cannula 3.0 1628/SPOKE WITH , REVIEWED EKG LABS CHEST X-RAY AND INTERVENTIONS FOR LOW BP. HE IS ALSO AWARE THAT MAGNESIUM WAS REPLACED AND AGREED TO ADMIT PATIENT. PATIENT IN NO PAIN AT THE PRESENT TIME HEART Score Response (Comments) Value EKG: Repolarization changes 1 Age: > 65yrs (+2) 2 Risk Factors: 3+ risk factors (+2) 2 Initial Troponin: Normal limit (0) 0 Total 5 Medical Decision Making MDM MEDICA MDM: DIFFERENTIAL DIAGNOSIS: ACS/AMI/ISCHEMIA/ELECTROLYTE IMBALANCE/DEHYDRATIO N/PNEUMONIA/BRONCHITIS/HYPOMAGNESEMIA RATIONALE: TESTS CONSIDERED AND ORDERED SECONDARY TO SHARED DECISION MAKING INCLUDE: LABS, ECG AND RADIOLOGY PREVIOUS OUTSIDE RECORDS REVIEWED: OLD ER VISITS. RISK OF COMPLICATION AND/OR MORBIDITY OR MORTALITY OF PATIENT MANAGEMENT: MILD MEDICATIONS-PER MEDICATION RECONCILIATION NEED FOR HOSPITALIZATION: PATIENT DOES MEET CRITERIA FOR HOSPITALIZATION. PATIENT WILL NEED TO CONTINUED CARDIAC ENZYMES AND EKG NEED FOR EMERGENCY MAJOR/MINOR SURGERY: NO THERE ARE NO SOCIAL CONCERNS WITH THIS PATIENT. PRESCRIPTION DRUG MANAGEMENT PRESCRIPTIONS WILL INCLUDE SYMPTOMATIC CARE PATIENT'S PRIOR EXTERNAL MEDICAL RECORDS FROM OTHER ER VISITS WERE REVIEWED BY ME INDICATED. PRIOR TESTING AND RESULTS FROM PREVIOUS VISITS WERE REVIEWED. PRIOR TESTS WERE TAKEN INTO ACCOUNT WITH MEDICAL DECISION MAKING AND RESOURCE UTILIZATION, INDEPENDENT HISTORIAN/HISTORIANS WERE USED TO OBTAIN COMPLETE MEDICAL HISTORY. I INDEPENDENTLY INTERPRETED THE TEST THAT WERE PERFORMED, RESULTS WERE REVIEWED BY ME AND CONSIDERED FINDINGS ON RADIOLOGY IF ORDERED. MEDICAL MANAGEMENT AND EXAMINATION INTERPRETATION DISCUSSIONS WERE HAD BY ME WITH OTHER QUALIFIED HEALTHCARE PROFESSIONALS INDICATED FOR THE PATIENT'S CARE. DX & DISP Disposition: Inpatient Departure Impression: Primary Impression: Acute coronary syndrome Additional Impressions: Abnormal EKG, Hypomagnesemia, Uncontrolled diabetes mellitus, Dyspnea on exertion Condition: Stable Referrals: PRISCILLA DONALD MD (PCP) Time of Disposition: 15:43 I have reviewed the case, and I agree with, Diagnosis and Plan MATTY SHEARER NP Dec 18, 2024 11:13
--- NOTE | 2024-12-18 11:22 | EKG ---
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
[2024-12-18] MEDS: ondanSETRON 4MG INJ IVP ONE (11:43)
[2024-12-18] MEDS: ASPIRIN 325MG TAB PO ONE (11:44)
--- NOTE | 2024-12-18 11:54 | NUR ---
PATIENT WAS GIVEN URINAL FOR URINE SAMPLE COLLECTION
--- NOTE | 2024-12-18 11:54 | NUR ---
PATIENT PLACED IN HALLWAY D, ON MONITOR, IS ON HOME 02 AT 3LPM
--- NOTE | 2024-12-18 12:12 | EKG ---
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
--- NOTE | 2024-12-18 12:17 | NUR ---
PT DIAPHORETIC, COMPLAINTS OF SOB AND CP, BP 65/43, CHARGE NURSE MADE AWARE, MOVED TO ED ROOM 5, SBAR REPORT GIVEN TO DAPHNEY RN, PLACED ON FULL MONITOR, EKG OBTAINED, 02 3 LTS. PLACED ON MODIFIED REVERSE TRANDELENBURG, ERMD NOTIFIED.
[2024-12-18 12:33] LABS: BASOPHILS # (AUTO) 0.07 K/uL (0.00-0.20); BASOPHILS % (AUTO) 1.3 % (0.0-5.0); EOSINOPHILS # (AUTO) 0.13 K/uL (0.00-0.70); EOSINOPHILS % (AUTO) 2.4 % (0.0-8.0); HEMATOCRIT 43.8 % (42-54); IMMATURE GRANULOCYTE ABSOLUTE 0.04 K/uL (0-1); LYMPHOCYTES # (AUTO) 1.1 K/uL (1.0-4.8); LYMPHOCYTES % (AUTO) 19.2 % (21.0-51.0); MEAN CORPUSCULAR HEMOGLOBIN 32.4 pg (27.0-33.0); MEAN CORPUSCULAR HGB CONC 33.8 g/dL (32.0-36.0); MEAN CORPUSCULAR VOLUME 95.8 fL (79-99); MONOCYTES # (AUTO) 0.4 K/uL (0.1-1.0); MONOCYTES % (AUTO) 7.5 % (3.0-13.0); NEUTROPHILS # (AUTO) 3.8 K/uL (1.8-7.7); NEUTROPHILS % (AUTO) 68.9 % (40.0-77.0); PLATELET COUNT (AUTO) 193 K/uL (130-400); RED BLOOD CELL COUNT(AUTO) 4.57 MIL/uL (4.50-6.20); RED CELL DISTRIBUTION WIDTH 12.9 % (11.0-15.5); WHITE BLOOD COUNT (AUTO) 5.5 K/uL (4.8-10.8)
[2024-12-18 12:39] LABS: CREATININE 0.9 mg/dL (0.5-1.3); MAGNESIUM 1.6 mg/dL (1.80-2.40); POTASSIUM 3.7 mmol/L (3.5-5.1)
--- NOTE | 2024-12-18 12:58 | HMCIMG ---
Exam Type: CHEST 1VW Clinical Information: CHEST PAIN Comparison: None Findings: Pulmonary pattern is as before. No worrisome interval changes have taken place. Impression: Stable exam.
[2024-12-18 13:23] LABS: B-TYPE NATRIURETIC PEPTIDE 16 pg/mL (0-100)
[2024-12-18] MEDS: 0.9%NACL 1000ML 1,000 ML IV ONE ×2 (13:57→15:39)
[2024-12-18] MEDS: MAGNESIUM OXIDE 400 MG TABLET PO ONE (15:39)
[2024-12-18] MEDS: acetaMINOPHEN 500 MG TABLET PO ONE (16:45)
--- NOTE | 2024-12-18 16:50 | NUR ---
DR COUCH AT BEDSIDE.
[2024-12-18] MEDS ORDERED: NITROGLYCERIN 0.4 MG SL TAB SL PRN (17:00)
[2024-12-18] MEDS ORDERED: PoTASSium chloRIDE 20MEQ/100ML 100 ML IV PRN (17:00)
[2024-12-18] MEDS ORDERED: hydrALAZine 20MG/ML VIAL IV PRN (17:00)
[2024-12-18] MEDS ORDERED: PoTASSium chloRIDE 20MEQ ER 20 MEQ ERTAB PO PRN (17:00)
[2024-12-18] MEDS ORDERED: PoTASSium chl 10% ELIXIR 20MEQ 20 MEQ/15 ML UDCUP PO PRN (17:00)
--- NOTE | 2024-12-18 17:09 | HP ---
[facility] HISTORY [facility] PHYSICAL Date of Service: Dec 18, 2024 Time of Service: 16:59 HISTORY OF PRESENT ILLNESS: Date of service: 12/18/2024 This 74-year-old male with past medical history of hypertension, hyperlipidemia, history of pulmonary fibrosis, BPH, history of CAD status post stent placement presented to the hospital secondary to chest pain. Patient states around 8:00 a.m. today he noted that he was having midsternal chest pain which would radiate towards his left side of the neck. He felt his pain was similar to prior episode of heart attack with associated pressure sensation. He took nitroglycerin x2 which relieved the pain. He stated that the pain lasted for more than an hour. Denied any paresthesias associated with the pain but he felt nauseated and had episodes of headache. Denied any fever, chills, shortness of breath. States he has history of pulmonary fibrosis and is respiratory symptoms are at baseline. Denied any abdominal pain, changes in his bowel movement. Denied any falls, syncopal episode. Patient took his medications in the morning prior to coming to the hospital. Labs showed white count of 5.5, hemoglobin was 14.8 Platelet count is 193 K, sodium was 140, potassium was 3.7, creatinine was 0.9 magnesium was 1.6, blood glucose was 148, troponin was negative x1, BNP was negative On presentation to the ED patient's blood pressure was noted to be 75/41, pipo ent was on3 L nasal cannula saturating 93%. Patient's heart rate was 73 REVIEW OF SYSTEMS CONSTITUTIONAL: Denies fevers, chills, or night sweats. No unintentional weight loss reported. NEUROLOGICAL: Denies headache, amaurosis fugax, motor weakness, sensory deficit, vertigo/spinning sensation, gait abnormalities, or tremors. ENT: No hearing loss, otalgia, otorrhea, rhinitis, rhinorrhea, hoarseness, or sore throat. CARDIOVASCULAR: Positive for chest pain at rest. Denied any PND, orthopnea, shortness for breath PULMONARY: Denies any shortness of breath,hemoptysis, pleuritic chest pain. Positive for cough GASTROINTESTINAL: Denies any type of dysphagia to either liquids or solids. Denies nausea, vomiting, pyrosis, early satiety, abdominal pain, diarrhea, constipation, or changes in stool consistency or caliber. Denies coffee-ground emesis, hematemesis, hematochezia, or melanotic stools. GENITOURINARY: Denies frequency, urgency, nocturia, hematuria or incontinence (Storage/Irritative symptoms.) Low urinary stream, straining to void, urinary intermittency or hesitancy, splitting of the voiding stream, terminal dribbling. ENDOCRINOLOGIC: Denies polyuria, polydipsia, polyphagia or heat/cold intolerances. HEMATOLOGIC: Denies thrombophilia/previous clots, or coagulopathy/bleeding disorders. ONCOLOGIC: Denies personal history of malignancy. DERMATOLOGIC: Denies rashes or pruritus. PSYCHIATRIC: Denies any suicidal or homicidal ideation. Denies hallucinations. PAST MEDICAL HISTORY: History of hypertension, hyperlipidemia, history of pulmonary fibrosis, BPH, history of CAD status post stent placement PAST SURGICAL HISTORY: History of heart catheterization PAST SOCIAL HISTORY: Denied smoking, alcohol, drug use FAMILY HISTORY: Denied any pertinent family history Coded Allergies: No Allergy Information Available (Verified Allergy, Unknown, 09/06/16) iodine (Unverified Allergy, Unknown, 08/01/20) PHYSICAL EXAM GENERAL APPEARANCE: The patient is awake, alert, and oriented, in no acute cardiopulmonary distress. NEUROLOGICAL: Cranial nerves II-XII grossly intact. Motor is 5/5 in bilateral upper and lower extremities proximal to distal. No sensory deficits. HEENT: Face is symmetric. Pupils are equal and reactive. Extraocular movements are intact. NECK: Supple. No JVD. No thyromegaly. No submental, submandibular, pre- /postauricular, occipital or supraclavicular lymphadenopathy. CHEST: Normal chest expansion. No Telemetry. LUNGS: He has basilar crackles present bilaterally CARDIOVASCULAR: Regular. S1 and S2 normal. No appreciable rubs, murmurs or gallops. ABDOMEN: Soft, nontender, and nondistended. There is no rebound, voluntary guarding, or rigidity. : Deferred. No Rider. EXTREMITIES: Non-edematous and not cyanotic. No clubbing. Good capillary refill. SKIN: No skin breakdown. Vital Sign (Last 24 Hours) 12/18/24 16:11 Temp 97.5 Pulse 71 Resp 20 B/P (MAP) 104/61 Pulse Ox 64 O2 Delivery Nasal Cannula* O2 Flow Rate 2 FiO2 28 LABS: Laboratory: Test 12/18/24 11:37 Range/Units White Blood Count 5.5 4.8-10.8 K/uL Red Blood Count 4.57 4.50-6.20 MIL/uL Hemoglobin 14.8 14.0-18.0 g/dL Hematocrit 43.8 42-54 % Mean Corpuscular Volume 95.8 79-99 fL Mean Corpuscular Hemoglobin 32.4 27.0-33.0 pg Mean Corpuscular Hemoglobin Concent 33.8 32.0-36.0 g/dL Red Cell Distribution Width 12.9 11.0-15.5 % Platelet Count 193 130-400 K/uL Mean Platelet Volume 9.6 7.5-10.5 fL Immature Granulocyte % (Auto) 0.7 0-1 % Neutrophils (%) (Auto) 68.9 40.0-77.0 % Lymphocytes (%) (Auto) 19.2 L 21.0-51.0 % Monocytes (%) (Auto) 7.5 3.0-13.0 % Eosinophils (%) (Auto) 2.4 0.0-8.0 % Basophils (%) (Auto) 1.3 0.0-5.0 % Neutrophils # (Auto) 3.8 1.8-7.7 K/uL Lymphocytes # (Auto) 1.1 1.0-4.8 K/uL Monocytes # (Auto) 0.4 0.1-1.0 K/uL Eosinophils # (Auto) 0.13 0.00-0.70 K/uL Basophils # (Auto) 0.07 0.00-0.20 K/uL Absolute Immature Granulocyte (auto 0.04 0-1 K/uL Nucleated Red Blood Cells 0.0 0.0-0.19 % Sodium Level 140 136-145 mmol/L Potassium Level 3.7 3.5-5.1 mmol/L Chloride Level 102 101-111 mmol/L Carbon Dioxide Level 30 21-32 mmol/L Blood Urea Nitrogen 11 7-18 mg/dL Creatinine 0.9 0.5-1.3 mg/dL Glomerular Filtration Rate Calc 90 >90 mL/min Random Glucose 148 H 70-105 mg/dL Total Calcium 8.2 L 8.5-10.1 mg/dL Magnesium Level 1.60 L 1.80-2.40 mg/dL Troponin I High Sensitivity 25 4-75 ng/L B-Type Natriuretic Peptide 16 0-100 pg/mL Current Medications Medications (Trade) Dose Ordered Sig/Anne Route PRN Reason Start Time Stop Time Status Last Admin Dose Admin Acetaminophen (TYLenol 500MG TAB) 500 mg Q6H PRN PO MILD PAIN (1-3) 12/18/24 17:00 01/17/25 16:59 UNV Enoxaparin Sodium (Lovenox) 30 mg DAILY SQ 12/19/24 09:00 01/18/25 08:59 UNV Famotidine (Pepcid 20mg Vial) 20 mg BID IV 12/18/24 21:00 01/17/25 20:59 UNV Morphine Sulfate (morPHINE 2MG SYG) 2 mg Q6H PRN IVP SEVERE PAIN (7-10) 12/18/24 17:00 12/25/24 16:59 UNV Nitroglycerin (Nitrostat) 0.4 mg AD PRN SL CHEST PAIN 12/18/24 17:00 01/17/25 16:59 UNV DIAGNOSTICS / RADIOLOGY: [ ] ASSESSMENT: Chest pain ACS rule out POA History of CAD status post stent placement in proximal to mid LAD History of pulmonary fibrosis Hypotension improved likely in setting of polypharmacy from multiple antihypertensive medications and nitroglycerin History of hypertension History of hyperlipidemia Iodine allergy PLAN: - patient to be admitted to medical-surgical unit with telemetry -in reference to chest pain. We will trend troponins q.6 hours to rule out ACS. We will also obtain echocardiogram. Secondary to patient's risk factors we will request consultation with Cardiology -obtain patient's home medications she will be reconciled once available. We will closely monitor blood pressure. We will restart antihypertensives accordingly -check TSH, A1c, D-dimer. If elevated we will consider V/Q scan in setting of Iodine in allergy - further orders per hospitalization course Advanced Care Planning Which of the following were discussed: Hospice care: Yes __ No _x_ Therapeutic options: Yes __ No __ Advance directives: Yes __ No __ Other discussions: Discussed with who?: patient (Patient, family or surrogates) Voluntary nature of this service was explained to the patient? Yes _x_ No __ Amount of time spent: 25 minutes PEARL Gray MD, MD Dec 18, 2024 17:09
--- NOTE | 2024-12-18 17:40 | NUR ---
PULMONOLOGY/BENCHMARK MADE AWARE OF PATIENT.
[2024-12-18 17:42] LABS: INR 1.07 (0.85-1.15); PROTHROMBIN TIME 11.9 SEC (9.6-11.6)
[2024-12-18 17:43] LABS: PARTIAL THROMBOPLASTIN TIME 29.6 SEC (26.3-35.5)
--- NOTE | 2024-12-18 18:14 | NUR ---
CARDIOLOGY (DR JACOBS) CONTACTED REGARDING INCREASING TROPONIN LEVEL AND HISTORY OF CARDIAC DISEASE.
[2024-12-18] MEDS: HEParin 5,000 UNIT VIAL IV PRN (18:46)
[2024-12-18] MEDS: HEParin 25,000 UNITS/250ML D5W 250 ML IV SCH (18:58)
--- NOTE | 2024-12-18 19:14 | NUR ---
HOSPITALIST CONTACTED REGARDING D-DIMER OF 902.HE WANTS THE PATIENT TO HAVE CT ANGIO CHEST PER PROTOCOL.
--- NOTE | 2024-12-18 19:49 | NUR ---
DR. COUCH CALLED AT THIS TIME TO CANCEL CTA DUE TO IODINE ALLERGY AND STATED HE WOULD ORDER A VQ SCAN FOR PATIENT INSTEAD DUE TO ELEVATED D-DIMER RESULTS. NO FURTHER ORDERS GIVEN AT THIS TIME./ROBERTO CARLOS
[2024-12-18] MEDS ORDERED: PRAS10TA9 PO (20:49)
[2024-12-18] MEDS: FAMOTIDINE 20MG VIAL IV SCH (21:22)
[2024-12-18] MEDS: MAGNESIUM 2GM PREMIX 50ML 50 ML IV PRN (22:31)
[2024-12-19] MEDS: acetaMINOPHEN 500 MG TABLET PO PRN (01:04)
[2024-12-19 01:26] LABS: INR 1.06 (0.85-1.15); PROTHROMBIN TIME 11.8 SEC (9.6-11.6)
[2024-12-19 01:49] LABS: PARTIAL THROMBOPLASTIN TIME > 139.0 SEC (26.3-35.5)
[2024-12-19] MEDS: morPHINE 2 MG SYG IVP PRN (02:54)
[2024-12-19 03:18] LABS: APPEARANCE,URINE CLEAR (CLEAR); BILIRUBIN,URINE NEGATIVE (NEGATIVE); COLOR,URINE YELLOW (YELLOW); GLUCOSE, URINE (UA) NEGATIVE (NEGATIVE); KETONES,URINE NEGATIVE (NEGATIVE); LEUKOCYTE ESTERASE ,URINE NEGATIVE Leu/uL (NEGATIVE); NITRATE,URINE NEGATIVE (NEGATIVE); OCCULT BLOOD,URINE NEGATIVE (NEGATIVE); PH,URINE 5.5 (5.0-8.0); PROTEIN,URINE NEGATIVE (NEGATIVE); UROBILINOGEN,URINE 0.2 mg/dL (0.2-1.0)
[2024-12-19 03:27] LABS: ADD UA MICROSCOPIC NO
[2024-12-19] MEDS ORDERED: ADVAIR IH PRN (04:00)
--- NOTE | 2024-12-19 07:44 | EKG ---
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
--- NOTE | 2024-12-19 08:30 | HMCIMG ---
Exam Type: NM PULMONARY/LUNG VENTILATION Clinical Information: elevated d dimer Comparison: None Findings: Anterior and posterior pulmonary ventilation scan was performed during and following inhalation of 8.8 mCi of technetium 99m DTPA gas and pulmonary perfusion images were performed following intravenous injection of 4.8 mCi of 99m Tc-labeled MAA. Ventilation: homogeneous distribution of the xenon gas in both lungs during the single breath and equilibrium phases. Symmetrical clearance of the xenon gas demonstrated in the wash out phase. No evidence of air trapping. Perfusion: Segmental size defect of the left lower lobe as well as subsegmental defects of the right upper and lower lobe. Impression: Intermediate probability for pulmonary embolism.
[2024-12-19 08:45] LABS: INR 1.02 (0.85-1.15); PROTHROMBIN TIME 11.4 SEC (9.6-11.6)
[2024-12-19] MEDS ORDERED: ENOXAPARIN SODIUM 30 MG/0.3 ML SQ SCH (09:00)
--- NOTE | 2024-12-19 09:23 | CONS ---
[facility] CONSULTATION NOTE Date Patient Seen: Dec 19, 2024 Time of Visit: 09:22 Supervising Physician: [Dr. Tay] Reason for Consultation: [Pulmonary fibrosis] Primary Care Physician: [Dr. Ortega] Outpatient Specialists: [Dr. Dejesus, Dr. Zaire Watt] Inpatient Consults: [[facility]] PROBLEM LIST: Acute on chronic hypoxic respiratory failure on supplemental oxygen at 5L Atypical chest pain, r/o ACS, PE NSTEMI, type 1 vs type 2 Acute hypotension, possible polypharmacy with multiple blood pressure medications Essential hypertension Former smoker Plan: Continue heparin drip Follow V/Q scan results Pending echocardiogram, renal U/S and venous doppler Supplemental oxygen as needed, baseline 3L Obtain sputum culture Start solumedrol Nebulizer prn BP management per primary/cardio Follow cardio rec Further management per primary HPI: [This is a 74-year-old male with a history of hypertension, hyperlipidemia, pulmonary fibrosis on home oxygen and Advair outpatient who presented to the ED for evaluation of left-sided anterior chest pain associated with nausea and vomiting with onset 3 hours prior to arrival. Patient admits worsening shortness of breaths previous days prior to admission. He admits a history of for heart attacks in the past as states similar symptoms. Admits chest pain currently 3/10, is worse with exertion. Troponin on admission was 25 and in creased to 362. Per ED report, patient has a new T-wave inversions not found on previous EKGs but otherwise normal sinus rhythm with a heart rate of 89. CXR on admission was consistent with pulmonary fibrosis. Patient admits cough with phlegm, has some end expiratory wheezing on auscultation bilaterally.] PAST MEDICAL HX: see above PAST SURGICAL HX: CAD with stents SOCIAL HISTORY: Former tobacco smoker, no ETOH, or illicit drug use Coded Allergies: No Allergy Information Available (Verified Allergy, Unknown, 09/06/16) iodine (Unverified Allergy, Unknown, 08/01/20) REVIEW OF SYSTEMS: 12 point ROS reviewed with patient. Pertinent positives mentioned above. Otherwise negative. PHYSICAL EXAM: GENERAL: alert, weak, awake oriented x 3 HEENT: EOMI, Sclera non icteric, moist mucosa NECK: Supple, no JVD, trachea midline LUNGS: Clear breath sounds bilaterally. No wheezes HEART: Regular rate and rhythm. Normal S1 and S2, without murmurs ABD: Abdomen soft, nontender. Bowel sounds present EXT: No clubbing cyanosis or edema NEURO: Alert and oriented to person, follows commands Vital Signs (last 8hr) Date Time Temp Pulse Resp B/P (MAP) Pulse Ox O2 Delivery O2 Flow Rate FiO2 12/19/24 09:16 98.6 84 20 144/75 92 Nasal Cannula* 5 40 12/19/24 07:34 98.6 97 20 181/114 98 Nasal Cannula* 3 32 12/19/24 07:33 98.6 98 19 200/124 99 Nasal Cannula* 3 32 12/19/24 04:17 98.6 83 19 147/77 91 Nasal Cannula* 5 40 LABS: Hematology Labs: Test 12/18/24 11:37 Range/Units White Blood Count 5.5 4.8-10.8 K/uL Red Blood Count 4.57 4.50-6.20 MIL/uL Hemoglobin 14.8 14.0-18.0 g/dL Hematocrit 43.8 42-54 % Mean Corpuscular Volume 95.8 79-99 fL Mean Corpuscular Hemoglobin 32.4 27.0-33.0 pg Mean Corpuscular Hemoglobin Concent 33.8 32.0-36.0 g/dL Red Cell Distribution Width 12.9 11.0-15.5 % Platelet Count 193 130-400 K/uL Mean Platelet Volume 9.6 7.5-10.5 fL Immature Granulocyte % (Auto) 0.7 0-1 % Neutrophils (%) (Auto) 68.9 40.0-77.0 % Lymphocytes (%) (Auto) 19.2 L 21.0-51.0 % Monocytes (%) (Auto) 7.5 3.0-13.0 % Eosinophils (%) (Auto) 2.4 0.0-8.0 % Basophils (%) (Auto) 1.3 0.0-5.0 % Neutrophils # (Auto) 3.8 1.8-7.7 K/uL Lymphocytes # (Auto) 1.1 1.0-4.8 K/uL Monocytes # (Auto) 0.4 0.1-1.0 K/uL Eosinophils # (Auto) 0.13 0.00-0.70 K/uL Basophils # (Auto) 0.07 0.00-0.20 K/uL Absolute Immature Granulocyte (auto 0.04 0-1 K/uL Nucleated Red Blood Cells 0.0 0.0-0.19 % Chemistry Labs: Test 12/19/24 08:14 12/18/24 23:24 12/18/24 11:37 Range/Units Whole Blood Glucose 105 70-110 MG/DL Troponin I High Sensitivity 362 *H 4-75 ng/L Sodium Level 140 136-145 mmol/L Potassium Level 3.7 3.5-5.1 mmol/L Chloride Level 102 101-111 mmol/L Carbon Dioxide Level 30 21-32 mmol/L Blood Urea Nitrogen 11 7-18 mg/dL Creatinine 0.9 0.5-1.3 mg/dL Glomerular Filtration Rate Calc 90 >90 mL/min Random Glucose 148 H 70-105 mg/dL Total Calcium 8.2 L 8.5-10.1 mg/dL Magnesium Level 1.60 L 1.80-2.40 mg/dL B-Type Natriuretic Peptide 16 0-100 pg/mL Coagulation Labs: Test 12/19/24 08:28 12/18/24 17:14 Range/Units Prothrombin Time 11.4 9.6-11.6 SEC Prothromb Time International Ratio 1.02 0.85-1.15 D-Dimer Quantitative (PE/DVT) 902 *H 0-500 ng/mL DIAGNOSTICS / RADIOLOGY RESULTS: [pending renal US, venous doppler and echo] PLAN NEURO: Minimize central acting medications as possible. Maintain fall precautions, adequate lighting during the day PULMONARY: Supplemental 02 as needed. Maintain aspiration precautions at all times CARDIOVASCULAR: Follow hemodynamics. Vital signs per facility protocol GI & NUTRITION: Continue with nutritional support. Continue stool softeners and laxatives as needed. KIDNEYS & ELECTROLYTES: Strict monitoring of intake, output and overall fluid balance. Avoid nephrotoxic medications to the extent possible. Medications to be dosed according to renal function. Monitor electrolytes and replace as needed ENDOCRINE: Maintain blood glucose between 100-180 at all times. Hypoglycemia protocol in place INFECTIOUS DISEASE: Trend temperature, WBC and procalcitonin level Follow cultures, deescalate antibiotics as soon as possible. Panculture if new onset fever ONCOLOGY/HEMATOLOGY/COAGULATION: Monitor for s/s of bleeding Monitor hemoglobin, coagulation studies as needed SKIN: Pressure ulcer prevention per facility protocol Specialty mattress ORTHO/REHAB: Continue PT/OT Prophylaxis: Continue GI and DVT prophylaxis Code Status: Full Resuscitation Disposition: TBD Other: Total patient care time exceeds 35 minutes excluding all procedures. ELIZABETH GRIFFITHS Dec 19, 2024 09:23
[2024-12-19 09:25] LABS: HEMATOCRIT 42.5 % (42-54); MEAN CORPUSCULAR HEMOGLOBIN 32.6 pg (27.0-33.0); MEAN CORPUSCULAR HGB CONC 33.9 g/dL (32.0-36.0); MEAN CORPUSCULAR VOLUME 96.2 fL (79-99); RED BLOOD CELL COUNT(AUTO) 4.42 MIL/uL (4.50-6.20); WHITE BLOOD COUNT (AUTO) 7.8 K/uL (4.8-10.8)
[2024-12-19] MEDS ORDERED: dilTIAZem 120MG SR CAP PO SCH (09:30)
[2024-12-19 09:39] LABS: HEMOGLOBIN A1C 5.9 % (4.0-6.0)
[2024-12-19 09:43] LABS: ALBUMIN 2.8 g/dL (3.5-5.0); BILIRUBIN,TOTAL 0.6 mg/dL (0.2-1.0); CREATININE 0.6 mg/dL (0.5-1.3); MAGNESIUM 1.9 mg/dL (1.80-2.40); POTASSIUM 3.7 mmol/L (3.5-5.1); TOTAL PROTEIN, SERUM 6.3 g/dL (6.0-8.3)
[2024-12-19 09:57] LABS: PARTIAL THROMBOPLASTIN TIME 106.5 SEC (26.3-35.5)
--- NOTE | 2024-12-19 10:15 | NUR ---
[id number] RESULT GIVEN BY Beegit, PTT IS LAT
--- NOTE | 2024-12-19 10:19 | EKG ---
[facility] Test Date: 2024-12-19 Test Time: 10:08:18 Pat Name: RIKY EDWARDS Department: [facility] Room: 430 Gender: M Director Child Abuse Therapy: 1006 : 1950 Requested By: ALVIN BERNAL Order Number: [id number] Reading MD: Nasir Herrmann Measurements Intervals [place] Rate: 79 P: 50 VA: 152 QRS: -4 QRSD: 88 T: -14 QT: 346 QTc: 397 Interpretive Statements Sinus rhythm Compared to ECG 12/18/2024 18:18:11 T-wave abnormality no longer present Electronically Signed On 12-21-2024 17:34:49 ELECTRICAL EQUIPMENT TECHNICIAN by Nasir Herrmann Please click the below link to view image of tracing.
[2024-12-19] MEDS: ASPIRIN 81MG CHEW TAB PO SCH (10:41)
[2024-12-19] MEDS: PRASUGREL HCL 10 MG TABLET PO SCH (10:41)
[2024-12-19] MEDS: atorVAStatin 40 MG TABLET PO SCH (10:41)
[2024-12-19] MEDS: ISOSORBIDE MONO 30MG SR TAB PO ONE (11:01)
[2024-12-19] MEDS: LoSARTan 50 MG TABLET PO ONE (11:01)
[2024-12-19] MEDS: dilTIAZem 120MG SR CAP PO ONE (11:02)
--- NOTE | 2024-12-19 12:23 | CONS ---
Cardiology Consult Note Attending Toll Gate Keeper: Dr. Ryan Deejsus Consulting Physician: Hospitalist Date of Service: 12/19/2024 Reason for Consult: Elevated troponin HPI: This is a 74y/o male with a past medical history of HTN, HLP, restrictive lung disease/IPF on home oxygen, CAD/WI in 2014, s/p PCI with CESAR placement in the mid RCA done in 2015, NSTEMI s/p PCI with CESAR placement (Xience Skypoint 3.5x23 mm) in the proximal-mid LAD, CESAR placement (Xience Skypoint 3.5x28 mm) in the mid LAD, and PTCA in the ostial Septal1 done on 04/19/2024, HFpEF (LVEF: 60-65% by echo done 04/18/2024), and BPH who presents with chest pain of 1 day in duration. The symptoms began spontaneously and over the ensuing timeframe were constant, and progressively worsened. The pain was described as stabbing in quality, 9/10 in intensity, and radiated to the bilateral shoulders, arms, back, and neck. The symptoms were not exacerbated or alleviated by anything. Associated symptoms include headache, dizziness, palpitations, shortness of breath, PND, pillow orthopnea, abdominal pain, nausea, and chills. Pertinent negatives include syncope, vomiting, weight gain, lower extremity swelling, diaphoresis, or fever. The patient's progression of symptoms prompted him to seek a higher level of care. While in the ED, laboratory data identified an elevated HS troponin I level. Cardiology was consulted for treatment recommendations. PMH: Listed above PSH: Listed above FH: Noncontributory SH: Denies alcohol, tobacco, or illicit drug use. Allergies: Coded Allergies: No Allergy Information Available (Verified Allergy, Unknown, 09/06/16) iodine (Unverified Allergy, Unknown, 08/01/20) Review of systems: General: As per the HPI HEENT: Denies changes in vision, earache or sore throat Neck: As per the HPI Cardio: As per the HPI Pulm: As per the HPI GI: As per the HPI MSK: As per the HPI Heme: Denies anemia, easy bruising, or bleeding. Neuro: As per the HPI Psyche: Denies anxiety, depression, or suicidal ideation. Physical Exam: Vital Signs Date Time Temp Pulse Resp B/P (MAP) Pulse Ox O2 Delivery O2 Flow Rate FiO2 12/19/24 11:03 98.6 76 18 150/68 94 Nasal Cannula* 5 40 General: Alert and oriented. NAD. Chronically ill appearing. HEENT: NC/AT. Oral mucosa is moist. Neck: No masses, JVD, or carotid bruits Lungs: NRD. SCM. Bilateral air entry. Fine rhonchi noted throughout. Cardio: Regular rate. Distant, but normal S1 and S2, +S4. No obvious murmurs, gallops, or rubs noted. Abdomen: Soft. NT. ND. Normal active bowel sounds x 4 quadrants. Extremities: Diminished throughout. Hyperpigmentation noted to the bilateral lower extremities with scabbing noted to the left shirley. No edema, clubbing, or cyanosis. Neuro: CN II-XII were grossly intact. No obvious focal deficits. Labs: Laboratory Tests Test 12/18/24 17:14 12/18/24 23:24 12/19/24 01:01 12/19/24 02:56 Range/Units Prothrombin Time 11.9 H 11.8 H 9.6-11.6 SEC Prothromb Time International Ratio 1.07 1.06 0.85-1.15 Activated Partial Thromboplast Time 29.6 > 139.0 #*H 26.3-35.5 SEC D-Dimer Quantitative (PE/DVT) 902 *H 0-500 ng/mL Troponin I High Sensitivity 149 *H 362 *H 4-75 ng/L Urine Color YELLOW YELLOW Urine Appearance CLEAR CLEAR Urine pH 5.5 5.0-8.0 Urine Specific [place] 1.020 1.001-1.031 Urine Protein NEGATIVE NEGATIVE mg/dL Urine Glucose (UA) NEGATIVE NEGATIVE mg/dL Urine Ketones NEGATIVE NEGATIVE mg/dL Urine Occult Blood NEGATIVE NEGATIVE Urine Nitrate NEGATIVE NEGATIVE Urine Bilirubin NEGATIVE NEGATIVE mg/dL Urine Urobilinogen 0.2 0.2-1.0 mg/dL Urine Leukocyte Esterase NEGATIVE NEGATIVE [place]/uL Test 12/19/24 08:14 12/19/24 08:28 12/19/24 09:00 Range/Units Whole Blood Glucose 105 70-110 MG/DL Prothrombin Time 11.4 9.6-11.6 SEC Prothromb Time International Ratio 1.02 0.85-1.15 Activated Partial Thromboplast Time 106.5 *H 26.3-35.5 SEC White Blood Count 7.8 # 4.8-10.8 K/uL Red Blood Count 4.42 L 4.50-6.20 MIL/uL Hemoglobin 14.4 14.0-18.0 g/dL Hematocrit 42.5 42-54 % Mean Corpuscular Volume 96.2 79-99 fL Mean Corpuscular Hemoglobin 32.6 27.0-33.0 pg Mean Corpuscular Hemoglobin Concent 33.9 32.0-36.0 g/dL Red Cell Distribution Width 13.0 11.0-15.5 % Platelet Count 185 130-400 K/uL Mean Platelet Volume 9.3 7.5-10.5 fL Nucleated Red Blood Cells 0.0 0.0-0.19 % Sodium Level 143 136-145 mmol/L Potassium Level 3.7 3.5-5.1 mmol/L Chloride Level 107 101-111 mmol/L Carbon Dioxide Level 30 21-32 mmol/L Blood Urea Nitrogen 12 7-18 mg/dL Creatinine 0.6 0.5-1.3 mg/dL Glomerular Filtration Rate Calc 102 >90 mL/min Random Glucose 105 70-105 mg/dL Hemoglobin A1c 5.9 4.0-6.0 % Estimated Average Glucose (eAG) 123 70-126 mg/dL Total Calcium 7.6 L 8.5-10.1 mg/dL Magnesium Level 1.90 1.80-2.40 mg/dL Total Bilirubin 0.6 0.2-1.0 mg/dL Aspartate Amino Transf (AST/SGOT) 31 10-37 U/L Alanine Aminotransferase (ALT/SGPT) 27 12-78 U/L Alkaline Phosphatase 64 50-136 U/L Troponin I High Sensitivity 288 *H 4-75 ng/L Total Protein 6.3 6.0-8.3 g/dL Albumin 2.8 L 3.5-5.0 g/dL Assessment: -Chest pain -Transient hypotension -Elevated D Dimer level, segmental defect of the left lower lobe, right upper lobe, and right lower lobe on VQ scan done 12/18/2024, with intermediate probability for PE -Elevated troponin (type II WI) -Electrolyte derangement -HTN -HLP -Restrictive lung disease/IPF on home oxygen -CAD/WI in 2014, s/p PCI with CESAR placement in the mid RCA done in 2016, NSTEMI s/p PCI with CESAR placement (Xience Skypoint 3.5x23 mm) in the proximal-mid LAD, CESAR placement (Xience Skypoint 3.5x28 mm) in the mid LAD, and PTCA in the ostial Septal1 done on 04/19/2024 -HFpEF (LVEF: 60-65% by echo done 04/18/2024) -BPH Plan: 1. Elevated D Dimer level, segmental defect of the left lower lobe, right upper lobe, and right lower lobe on VQ scan done 12/18/2024, with intermediate probability for PE -Stable -D Dimer: 902 -VQ scan 12/18/2024: Segmental size defect in the left lower lobe, right upper lobe, and right lower lobe. Intermediate probability for PE. -Recommend that the patient continue on the IV heparin infusion today, which should be transitioned to oral anticoagulation in the AM with Eliquis 10 mg BID x 7 days, followed by 5 mg BID thereafter. 2. Elevated troponin (type II WI) -Stable -Cardiac enzymes-HS troponin I: 25>149>362>288 -The elevated troponin is thought to be a type II WI (demand ischemia) induced by the transient hypotension and PE, and not secondary to ACS. -As a result, we do not recommend any further ischemic cardiac workup and instead we recommend treating the PE. See plan 1 for treatment recommendations. -In the meantime, we will stop aspirin and the patient will remain on prasugrel 10 mg daily and atorvastatin 80 mg QHS. -We will reassess the patient's hemodynamics in the AM in order to determine whether we can safely restart his home regimen of diltiazem CD 120 mg daily. -A 2D echocardiogram has been ordered to assess the patient's systolic/diastolic function. Thank you for this interesting consult and allowing us to participate in the care of your patient. This case was seen and discussed with my Supervising Physician, Dr. Ryan Dejesus, and the above mentioned plan was formulated and agreed upon. -Consult Note written by Lorne Bright, MSN, [employer], AGACNP-BS LORNE BRIGHT NP Dec 19, 2024 12:23
[2024-12-19 12:28] LABS: ABG BASE EXCESS 0.4 mmol/L (-2.0-3.0); ABG OXYGEN SATURATION 90.4 % (94.0-98.0); ABG PCO2 40 mmHg (35-48); ABG PH 7.412 (7.350-7.450); CARBON MONOXIDE 1.3 % (0.5-1.5); HHb 9.4; PO2, ARTERIAL BG 56.6 mmHg (83.0-108.0); VENT MODE, BG NC (ROOM AIR)
--- NOTE | 2024-12-19 14:05 | HMCIMG ---
Exam Type: US VENOUS DOPPLER BILATERAL Clinical Information: DVT Comparison: None Findings: The examination shows normal deep venous system. There is normal compressibility at all levels. There is no intraluminal clot. There is no occlusion. Adequate response is obtained on augmentation. Impression: No evidence of DVT.
--- NOTE | 2024-12-19 15:11 | NUR ---
DCP: HOME Sw met with pt and his daughter Caryn Treviño [phone]. Pt is legally to Lynette Frost [phone], but they live separately in same apt complex. Pt is independent of ADLS, no DME or in home care services. PCP is Calvin Ortega and use [facility] Gonzalez for rx. Educated on MPOA. Pt ok with making decision for hi. Addendum: 12/19/24 at 1514 by DIANE THOMPSON Amended: Links added.
--- NOTE | 2024-12-19 16:17 | NUR ---
REPORT GIVEN TO ESTELLA NURSE AT 1415 PT STABLE NO DISTRESS, VITAS WNL NO C/O PAIN NOW, PT TRANSFERRED BY BED WITH PERSONAL BELONGINGS.
--- NOTE | 2024-12-19 16:51 | PN ---
[facility] PROGRESS NOTE Date of Service: Dec 19, 2024 Time of Service: 16:44 SUBJECTIVE: This 74-year-old male with past medical history of hypertension, hyperlipidemia, history of pulmonary fibrosis, BPH, history of CAD status post stent placement presented to the hospital secondary to chest pain. Patient states around 8:00 a.m. today he noted that he was having midsternal chest pain which would radiate towards his left side of the neck. He felt his pain was similar to prior episode of heart attack with associated pressure sensation. He took nitroglycerin x2 which relieved the pain. He stated that the pain lasted for more than an hour. Denied any paresthesias associated with the pain but he felt nauseated and had episodes of headache. Denied any fever, chills, shortness of breath. States he has history of pulmonary fibrosis and is respiratory symptoms are at baseline. Denied any abdominal pain, changes in his bowel movement. Denied any falls, syncopal episode. Patient took his medications in the morning prior to coming to the hospital. Labs showed white count of 5.5, hemoglobin was 14.8 Platelet count is 193 K, sodium was 140, potassium was 3.7, creatinine was 0.9 magnesium was 1.6, blood glucose was 148, troponin was negative x1, BNP was negative On presentation to the ED patient's blood pressure was noted to be 75/41, patient was on3 L nasal cannula saturating 93%. Patient's heart rate was 73 12/19/2024 - patient is seen at bedside in room ED 5. Patient is in mild distress and continued to complain of chest pain. Patient continues on heparin drip while we checked for lung V/Q scan, lower extremity Doppler. Lung V/Q scan revealed intermediate probability for pulmonary embolism, lower extremity Doppler is negative for any DVT. Cardiology and pulmonology are consulted on the case. Cardiology suggested the troponin elevation is thought to be due to type 2 RI induced by the transient hypotension and PE and not due to ACS. Patient is still pending on 2D echocardiogram. Patient is started on his home medication. Patient is currently hemodynamically stable with temperature 98.6, pulse 84, respiratory rate 20, blood pressure 141/76, saturating at 92% on5 L oxygen nasal cannula. Patient's labs show WBC 7.8, hemoglobin 14.4 And chemistries show sodium 143, potassium 3.7, creatinine 0.6, BUN 12and troponin trended down to 288 from 362 patient will be monitored closely. We will follow cardiology and pulmonology recommendations REVIEW OF SYSTEMS CONSTITUTIONAL: Denies fevers, chills, or night sweats. No unintentional weight loss reported. NEUROLOGICAL: Denies headache, amaurosis fugax, motor weakness, sensory deficit, vertigo/spinning sensation, gait abnormalities, or tremors. ENT: No hearing loss, otalgia, otorrhea, rhinitis, rhinorrhea, hoarseness, or sore throat. CARDIOVASCULAR: Positive for chest pain at rest. Denied any PND, orthopnea, shortness for breath PULMONARY: Denies any shortness of breath,hemoptysis, pleuritic chest pain. Positive for cough GASTROINTESTINAL: Denies any type of dysphagia to either liquids or solids. Denies nausea, vomiting, pyrosis, early satiety, abdominal pain, diarrhea, constipation, or changes in stool consistency or caliber. Denies coffee-ground emesis, hematemesis, hematochezia, or melanotic stools. GENITOURINARY: Denies frequency, urgency, nocturia, hematuria or incontinence (Storage/Irritative symptoms.) Low urinary stream, straining to void, urinary intermittency or hesitancy, splitting of the voiding stream, terminal dribbling. ENDOCRINOLOGIC: Denies polyuria, polydipsia, polyphagia or heat/cold intolerances. HEMATOLOGIC: Denies thrombophilia/previous clots, or coagulopathy/bleeding diso rders. ONCOLOGIC: Denies personal history of malignancy. DERMATOLOGIC: Denies rashes or pruritus. PSYCHIATRIC: Denies any suicidal or homicidal ideation. Denies hallucinations. PHYSICAL EXAM GENERAL APPEARANCE: The patient is awake, alert, and oriented, in no acute cardiopulmonary distress. NEUROLOGICAL: Cranial nerves II-XII grossly intact. Motor is 5/5 in bilateral upper and lower extremities proximal to distal. No sensory deficits. HEENT: Face is symmetric. Pupils are equal and reactive. Extraocular movements are intact. NECK: Supple. No JVD. No thyromegaly. No submental, submandibular, pre- /postauricular, occipital or supraclavicular lymphadenopathy. CHEST: Normal chest expansion. No Telemetry. LUNGS: He has basilar crackles present bilaterally CARDIOVASCULAR: Regular. S1 and S2 normal. No appreciable rubs, murmurs or gallops. ABDOMEN: Soft, nontender, and nondistended. There is no rebound, voluntary guarding, or rigidity. : Deferred. No Rider. EXTREMITIES: Non-edematous and not cyanotic. No clubbing. Good capillary refill. SKIN: No skin breakdown. Vital Signs (last 8hr) Date Time Temp Pulse Resp B/P (MAP) Pulse Ox O2 Delivery O2 Flow Rate FiO2 12/19/24 16:18 98.6 84 20 141/76 93 Nasal Cannula* 3.0 N/A 12/19/24 12:43 98.6 82 22 145/81 92 Nasal Cannula* 5 40 12/19/24 11:03 98.6 76 18 150/68 94 Nasal Cannula* 5 40 12/19/24 09:16 98.6 84 20 144/75 92 Nasal Cannula* 5 40 LABS: Laboratory: Test 12/19/24 12:26 12/19/24 09:00 12/19/24 08:28 12/19/24 08:14 Range/Units Blood Gas Specimen Type Arterial Arterial Blood pH 7.412 7.350-7.450 Arterial Blood Partial Pressure CO2 40 35-48 mmHg Arterial Blood Partial Pressure O2 56.6 L 83.0-108.0 mmHg Arterial Blood HCO3 25.0 21.0-28.0 mmol/L Arterial Blood Oxygen Saturation 90.4 L 94.0-98.0 % Arterial Blood Base Excess 0.4 -2.0-3.0 mmol/L Hemoglobin (Blood Gas) 14.6 13.5-17.5 g/dL Sodium (Blood Gas) 136 136-145 MMOL/L Bedside Potassium (Blood Gas) 3.6 3.4-4.5 MMOL/L Bedside Chloride (Blood Gas) 105 98-107 MMOL/L Bedside Glucose (Blood Gas) 103 H 65-95 MG/DL Bedside Ionized Calcium (Blood Gas) 1.10 L 1.15-1.33 MMOL/L Bedside Lactic Acid (Blood Gas) 1.00 H 0.36-0.75 MMOL/L Blood Gas Temperature 37.0 35.5-37.0 CELSIUS Blood Gas Flow-by 5.00 0.00-15.00 L/min Blood Gas Vent Mode NC ROOM AIR FiO2 40.0 % Blood Gas Specimen Comment RR SIRIA RN White Blood Count 7.8 # 4.8-10.8 K/uL Red Blood Count 4.42 L 4.50-6.20 MIL/uL Hemoglobin 14.4 14.0-18.0 g/dL Hematocrit 42.5 42-54 % Mean Corpuscular Volume 96.2 79-99 fL Mean Corpuscular Hemoglobin 32.6 27.0-33.0 pg Mean Corpuscular Hemoglobin Concent 33.9 32.0-36.0 g/dL Red Cell Distribution Width 13.0 11.0-15.5 % Platelet Count 185 130-400 K/uL Mean Platelet Volume 9.3 7.5-10.5 fL Nucleated Red Blood Cells 0.0 0.0-0.19 % Sodium Level 143 136-145 mmol/L Potassium Level 3.7 3.5-5.1 mmol/L Chloride Level 107 101-111 mmol/L Carbon Dioxide Level 30 21-32 mmol/L Blood Urea Nitrogen 12 7-18 mg/dL Creatinine 0.6 0.5-1.3 mg/dL Glomerular Filtration Rate Calc 102 >90 mL/min Random Glucose 105 70-105 mg/dL Hemoglobin A1c 5.9 4.0-6.0 % Estimated Average Glucose (eAG) 123 70-126 mg/dL Total Calcium 7.6 L 8.5-10.1 mg/dL Magnesium Level 1.90 1.80-2.40 mg/dL Total Bilirubin 0.6 0.2-1.0 mg/dL Aspartate Amino Transf (AST/SGOT) 31 10-37 U/L Alanine Aminotransferase (ALT/SGPT) 27 12-78 U/L Alkaline Phosphatase 64 50-136 U/L Troponin I High Sensitivity 288 *H 4-75 ng/L Total Protein 6.3 6.0-8.3 g/dL Albumin 2.8 L 3.5-5.0 g/dL Prothrombin Time 11.4 9.6-11.6 SEC Prothromb Time International Ratio 1.02 0.85-1.15 Activated Partial Thromboplast Time 106.5 *H 26.3-35.5 SEC Whole Blood Glucose 105 70-110 MG/DL Test 12/19/24 02:56 12/18/24 17:14 12/18/24 11:37 Range/Units Urine Color YELLOW YELLOW Urine Appearance CLEAR CLEAR Urine pH 5.5 5.0-8.0 Urine Specific [place] 1.020 1.001-1.031 Urine Protein NEGATIVE NEGATIVE mg/dL Urine Glucose (UA) NEGATIVE NEGATIVE mg/dL Urine Ketones NEGATIVE NEGATIVE mg/dL Urine Occult Blood NEGATIVE NEGATIVE Urine Nitrate NEGATIVE NEGATIVE Urine Bilirubin NEGATIVE NEGATIVE mg/dL Urine Urobilinogen 0.2 0.2-1.0 mg/dL Urine Leukocyte Esterase NEGATIVE NEGATIVE [place]/uL D-Dimer Quantitative (PE/DVT) 902 *H 0-500 ng/mL Immature Granulocyte % (Auto) 0.7 0-1 % Neutrophils (%) (Auto) 68.9 40.0-77.0 % Lymphocytes (%) (Auto) 19.2 L 21.0-51.0 % Monocytes (%) (Auto) 7.5 3.0-13.0 % Eosinophils (%) (Auto) 2.4 0.0-8.0 % Basophils (%) (Auto) 1.3 0.0-5.0 % Neutrophils # (Auto) 3.8 1.8-7.7 K/uL Lymphocytes # (Auto) 1.1 1.0-4.8 K/uL Monocytes # (Auto) 0.4 0.1-1.0 K/uL Eosinophils # (Auto) 0.13 0.00-0.70 K/uL Basophils # (Auto) 0.07 0.00-0.20 K/uL Absolute Immature Granulocyte (auto 0.04 0-1 K/uL B-Type Natriuretic Peptide 16 0-100 pg/mL Current Medications Medications (Trade) Dose Ordered Sig/Anne Route PRN Reason Start Time Stop Time Status Last Admin Dose Admin Acetaminophen (TYLenol 500MG TAB) 500 mg Q6H PRN PO MILD PAIN (1-3) 12/18/24 17:00 01/17/25 16:59 12/19/24 01:04 500 MG Aspirin (Aspirin 81mg Chew Tab) 81 mg DAILY PO 12/19/24 09:00 12/19/24 12:26 DC 12/19/24 10:41 81 MG Atorvastatin Calcium (LIPItor 40MG) 80 mg DAILY PO 12/19/24 09:00 01/18/25 08:59 12/19/24 10:41 80 MG Diltiazem HCl (CARDIzem 120MG CD) 120 mg DAILY PO 12/20/24 09:00 01/19/25 08:59 Diltiazem HCl (CARDIzem 120MG CD) 120 mg ONCE PO 12/19/24 09:30 12/19/24 09:19 DC Enoxaparin Sodium (Lovenox) 30 mg DAILY SQ 12/19/24 09:00 12/18/24 18:10 DC Famotidine (Pepcid 20mg Vial) 20 mg BID IV 12/18/24 21:00 01/17/25 20:59 12/19/24 10:41 20 MG Heparin Sodium (Porcine) (HEParin 5,000 UNIT VIAL) *calculation based on ACTUAL B... AD PRN IV HEPARIN PROTOCOL 12/18/24 19:00 01/17/25 18:59 12/18/24 18:46 5,610 UNIT Heparin Sodium/ Dextrose 250 ml @ 0 mls/hr Q6H IV 12/18/24 19:00 01/17/25 18:59 12/19/24 02:09 11.22 MLS/HR Home Med (Home Medication) BID PRN IH SHORTNESS OF BREATH/WHEEZING 12/19/24 04:00 01/18/25 03:59 Hydralazine HCl (APRESOLine 20MG INJ) 10 mg Q6H PRN IV ADMINISTER FOR SBP > 180 12/18/24 17:00 01/17/25 16:59 Isosorbide Mononitrate (Imdur 30mg Sr) 30 mg DAILY PO 12/20/24 09:00 01/19/25 08:59 Losartan Potassium (CozAAR 50 mg TAB) 50 mg DAILY PO 12/20/24 09:00 01/19/25 08:59 Magnesium Sulfate 50 ml @ 0 mls/hr PROTOCOL PRN IV hypomagnesemia 12/18/24 17:00 01/17/25 16:59 12/18/24 22:31 25 MLS/HR Morphine Sulfate (morPHINE 2MG SYG) 2 mg Q6H PRN IVP SEVERE PAIN (7-10) 12/18/24 17:00 12/25/24 16:59 12/19/24 14:39 2 MG Nitroglycerin (Nitrostat) 0.4 mg AD PRN SL CHEST PAIN 12/18/24 17:00 01/17/25 16:59 Potassium Chloride 100 ml @ 100 mls/hr AD PRN IV POTASSIUM PROTOCOL 12/18/24 17:00 01/17/25 16:59 Potassium Chloride (K-Dur/Klor-Con 20meq) 20 meq AD PRN PO POTASSIUM PROTOCOL 12/18/24 17:00 01/17/25 16:59 Potassium Chloride (KCl 10% Elixir 20meq/15ml) 20 meq AD PRN PO POTASSIUM PROTOCOL 12/18/24 17:00 01/17/25 16:59 Prasugrel (Effient 10mg) 10 mg DAILY PO 12/19/24 09:00 01/18/25 08:59 12/19/24 10:41 10 MG Ranolazine (Ranexa) 1,000 mg BID PO 12/19/24 21:00 01/18/25 20:59 DIAGNOSTICS / RADIOLOGY: PATIENT: RIKY EDWARDS MR#: [id number] : 1950 SEX: M AGE: 74 LOCATION: [facility] ORDER 03 STATUS: ADM IN REPORT#: [id number] SERVICE 120 REASON: DVT ORDERING PHYSICIAN: LORNE BRIGHT NP PROCEDURE: VENOUS JEN - US VENOUS DOPPLER BILATERAL Exam Type: US VENOUS DOPPLER BILATERAL Clinical Information: DVT Comparison: None Findings: The examination shows normal deep venous system. There is normal compressibility at all levels. There is no intraluminal clot. There is no occlusion. Adequate response is obtained on augmentation. Impression: No evidence of DVT. DICTATED BY: ERIN DHALIWAL MD DATE: 12/19/241401 ELECTRONICALLY SIGNED BY: ERIN DHALIWAL MD DATE: 12/19/241404 PATIENT: RIKY EDWARDS MR#: [id number] : 1950 SEX: M AGE: 74 LOCATION: [facility] ORDER 45 STATUS: ADM IN REPORT#: [id number] SERVICE 43 REASON: elevated d dimer ORDERING PHYSICIAN: PEARL TAM MD PROCEDURE: PULM VENT - NM PULMONARY/LUNG VENTILATION Exam Type: NM PULMONARY/LUNG VENTILATION Clinical Information: elevated d dimer Comparison: None Findings: Anterior and posterior pulmonary ventilation scan was performed during and following inhalation of 8.8 mCi of technetium 99m DTPA gas and pulmonary perfusion images were performed following intravenous injection of 4.8 mCi of 99m Tc-labeled MAA. Ventilation: homogeneous distribution of the xenon gas in both lungs during the single breath and equilibrium phases. Symmetrical clearance of the xenon gas demonstrated in the wash out phase. No evidence of air trapping. Perfusion: Segmental size defect of the left lower lobe as well as subsegmental defects of the right upper and lower lobe. Impression: Intermediate probability for pulmonary embolism. DICTATED BY: ERIN DHALIWAL MD DATE: 12/19/24823 ELECTRONICALLY SIGNED BY: ERIN DHALIWAL MD DATE: 12/19/24829 ASSESSMENT: Chest pain ACS rule out POA History of CAD status post stent placement in proximal to mid LAD History of pulmonary fibrosis Hypotension improved likely in setting of polypharmacy from multiple antihypertensive medications and nitroglycerin History of hypertension History of hyperlipidemia Iodine allergy PLAN: - patient to be admitted to medical-surgical unit with telemetry -in reference to chest pain. We will trend troponins q.6 hours to rule out ACS. We will also obtain echocardiogram. Secondary to patient's risk factors we will request consultation with Cardiology -obtain patient's home medications she will be reconciled once available. We will closely monitor blood pressure. We will restart antihypertensives accordingly -check TSH, A1c, D-dimer. If elevated we will consider V/Q scan in setting of Iodine in allergy - further orders per hospitalization course Advanced Care Planning Which of the following were discussed: Hospice care: Yes __ No _x_ Therapeutic options: Yes __ No __ Advance directives: Yes __ No __ Other discussions: Discussed with who?: patient (Patient, family or surrogates) Voluntary nature of this service was explained to the patient? Yes _x_ No __ Amount of time spent: 25 minutes Pearl Tam MD ATTESTATION BY PHYSICIAN I have seen and examined the patient. I reviewed the documentation, medical decision making, and treatment plan as noted by the mid-level provider above. I agree with the findings and plan of care. Estuardo Mccauley MD, KEERTI K MD Dec 19, 2024 16:51
[2024-12-19 17:26] VITALS: BP 133/76; PULSE 77; RESP 18; TEMP 98.6
[2024-12-19 17:31] VITALS: O2SAT 100
[2024-12-19] MEDS ORDERED: LEVA15HF3 IH (17:58)
[2024-12-19] MEDS ORDERED: FLUT1BLS12 IH (17:58)
--- NOTE | 2024-12-19 19:12 | HMCIMG ---
RENAL ARTERY ULTRASOUND. COMPARISON: None available. FINDINGS: There is no significant aortic plaque, and the peak systolic velocity in the aorta is normal before and after the renal artery takeoff bilaterally. The highest peak systolic velocity of the renal arteries is normal bilaterally. Bilateral RAR's are within normal limits. IMPRESSION: No evidence of renal artery stenosis.
[2024-12-19] MEDS: RANOLAZINE 500 MG TAB.SR.12H PO SCH (19:56)
[2024-12-19 20:00] VITALS: BP 146/77; PULSE 70; RESP 19; TEMP 97.8; O2SAT 94
[2024-12-19] MEDS ORDERED: ALBUTEROL 0.083% 2.5 MG/3 ML INH IH PRN (22:30)
[2024-12-19] MEDS ORDERED: IpraTROPium 0.5 MG/2.5 ML INH IH PRN (22:30)
[2024-12-19] MEDS: Solu-medROL 40MG VIAL IVP SCH (23:06)
[2024-12-19 23:11] VITALS: PULSE 69; RESP 20; O2SAT 94
[2024-12-20] VITALS (10 sets, daily range): BP systolic 115–138; BP diastolic 73–86; PULSE 57–79; RESP 16–20; TEMP 97.3–98.6; O2SAT 91–98
[2024-12-20] MEDS: SODIUM CHLORIDE 3% FOR INHALATION 4 ML/AMP VIAL.NEB IH ONE ×2 (00:19→03:30)
--- NOTE | 2024-12-20 01:30 | HMCSR ---
APPROVED REPORT EXAM: Two-dimensional and M-mode echocardiogram with Doppler and color Doppler. INDICATION ICD: Chest Pain 2D Dimensions RVDd3.5 cmLVEF(%)47.5 (>50%)LVED Vol(simp.)84.4 mL IVSd1.1 (0.7-1.1cm)FS(%)24 %LVES Vol(simp.)33.1 mL LVDd5.0 (3.8-5.6cm)LA (2D)4.0 (1.6-4.0cm)LVEF(%, simp.)61 % PWd1.1 (0.7-1.1cm)Ao Root(2D)3.1 (2.0-3.7cm)LA ESV INDEX (4CH)24.50 mL/m2 IVSs1.2 cmLVOT diam2.2 (1.8-2.4cm)LA ESV INDEX (2CH)33.20 mL/m2 LVDs3.8 (2.5-4.0cm)LA ESV INDEX (BP)31.90 mL/m2 PWs1.6 cm Deformation Strain Apical 419.0 % Apical 221.0 % Apical 315.0 % Global Gxylbj50.0 % M-Mode Dimensions EPSS1.2 cm LA (MM)4.1 (1.6-4.0cm) Ao Root(MM)3.4 (2.0-3.7cm) Aortic Valve AoV VTI0.3 mAo Mean GR5.0 mmHgLVOT VTI0.18 m KIAN (VMAX)2.0 cm2AVA (VTI) 2.0 cm2 Mitral Valve MV E Wred434.7 cm/sDECEL Azxm286 ms MV A Kygl468.0 cm/sP 1/2 T66 ms E/A ratio0.9MVA (PHT)3.3 cm2 TDI E/E' Ytluop84.0E/E' Srmetbj18.1 Medial E' Peak V4.80 cm/sLateral E' Peak V8.70 cm/s Pulmonary Valve PV Vmax1.2 m/s PV Peak GR5.6 mmHg Left Ventricle The left ventricle is normal in size. No regional wall motion abnormalities noted. Mild concentric le ft ventricular hypertrophy. Left ventricular systolic function is normal, estimated LVEF is 55%. Stag e I diastolic dysfunction. Right Ventricle The right ventricle is normal size. The right ventricular systolic function is normal. Atria The left atrial size is normal. The right atrium size is normal. Aortic Valve Aortic valve is trileaflet. The leaflets are mildly thickened and calcified. Trace aortic regurgitati on. There is no aortic valvular stenosis. Mitral Valve Mild mitral annular calcification is noted. The leaflets are mildly thickened and calcified. Trace mi tral regurgitation. There is no mitral valve stenosis. Tricuspid Valve The tricuspid valve is normal in structure and function. Trace tricuspid regurgitation. RVSP is lorraine l. Pulmonic Valve Pulmonic valve is not well visualized. Great Vessels The aortic root is normal in size. The IVC is normal in size and collapses >50% with inspiration. Pericardium No pericardial effusion. Conclusion The cardiac chambers are normal in size. Mild concentric left ventricular hypertrophy. No regional wall motion abnormalities noted. Left ventricular systolic function is normal, estimated LVEF is 55%. Stage I diastolic dysfunction. Trace aortic regurgitation. Trace mitral regurgitation. Trace tricuspid regurgitation. PASP is normal. No pericardial effusion.
[2024-12-20 05:15] LABS: BASOPHILS # (AUTO) 0.05 K/uL (0.00-0.20); BASOPHILS % (AUTO) 0.7 % (0.0-5.0); EOSINOPHILS # (AUTO) 0.01 K/uL (0.00-0.70); EOSINOPHILS % (AUTO) 0.1 % (0.0-8.0); IMMATURE GRANULOCYTE ABSOLUTE 0.02 K/uL (0-1); LYMPHOCYTES # (AUTO) 0.9 K/uL (1.0-4.8); LYMPHOCYTES % (AUTO) 12.1 % (21.0-51.0); MEAN CORPUSCULAR HEMOGLOBIN 32.2 pg (27.0-33.0); MEAN CORPUSCULAR HGB CONC 33.6 g/dL (32.0-36.0); MEAN CORPUSCULAR VOLUME 95.9 fL (79-99); MONOCYTES # (AUTO) 0.1 K/uL (0.1-1.0); MONOCYTES % (AUTO) 1.8 % (3.0-13.0); NEUTROPHILS # (AUTO) 6.1 K/uL (1.8-7.7); PLATELET COUNT (AUTO) 187 K/uL (130-400); RED BLOOD CELL COUNT(AUTO) 4.38 MIL/uL (4.50-6.20); RED CELL DISTRIBUTION WIDTH 12.8 % (11.0-15.5); WHITE BLOOD COUNT (AUTO) 7.2 K/uL (4.8-10.8)
[2024-12-20 05:24] LABS: CREATININE 0.7 mg/dL (0.5-1.3); POTASSIUM 4.2 mmol/L (3.5-5.1)
[2024-12-20] MEDS: LoSARTan 50 MG TABLET PO SCH (09:16)
[2024-12-20] MEDS: dilTIAZem 120MG SR CAP PO SCH (09:17)
[2024-12-20] MEDS: APIXaban 5 MG TABLET PO SCH (09:17)
[2024-12-20] MEDS: ISOSORBIDE MONO 30MG SR TAB PO SCH (09:18)
--- NOTE | 2024-12-20 10:31 | PN ---
[facility] PROGRESS NOTE Date Patient Seen: Dec 20, 2024 Time of Visit: 10:30 Supervising Physician: [Dr. Fish] Primary Care Physician: [Dr. Ortega] Outpatient Specialists: [Dr. Dejesus, Dr. Zaire Watt] [facility]patient Cons[facility]: [facility] PROBLEM LIST: Acute on chronic hypoxic respiratory failure on supplemental oxygen at 5L Atypical chest pain, r/o ACS, PE Suspected pulmonary embolus, indeterminant per V/Q NSTEMI, type 1 vs type 2 Acute hypotension, possible polypharmacy with multiple blood pressure medications Essential hypertension Former smoker Plan: Follow cardiology recommendation Continue eliquis Supplemental oxygen as needed, baseline 3L Obtain sputum culture Continue solumedrol Nebulizer prn BP management per primary/cardio Further management per primary INTERVAL HISTORY: [Patient's chest pain is improved. His V/Q scan is indeterminant for PE. Venous doppler is negative for DVT. The patient has been started on eliquis 10mg BID for treatment of PE and stopped heparin. Primary is considering a CTA for confirmation of PE. The patient has an allergy to iodine. When asked about his allergy, patient admitted having systemic rash, diaphoresis and tachycardia but denied any swelling of throat or anaphylaxis. He was unclear of his symptoms as it was a long time ago. Patient is recommended to continue eliquis as treatment for PE X 3 months and reevaluate his need for anticoagulation at that time. Cardiology is not recommending CAD workup at this time.] REVIEW OF SYSTEMS: 12 point ROS reviewed with patient. Pertinent positives mentioned above. Otherwise negative. PHYSICAL EXAM: GENERAL: alert, weak, awake oriented x 3 HEENT: EOMI, Sclera non icteric, moist mucosa NECK: Supple, no JVD, trachea midline LUNGS: Clear breath sounds bilaterally. No wheezes HEART: Regular rate and rhythm. Normal S1 and S2, without murmurs ABD: Abdomen soft, nontender. Bowel sounds present EXT: No clubbing cyanosis or edema NEURO: Alert and oriented to person, follows commands Vital Signs (last 8hr) Date Time Temp Pulse Resp B/P (MAP) Pulse Ox O2 Delivery O2 Flow Rate FiO2 12/20/24 08:15 98.6 73 20 123/74 92 Nasal Cannula 3.0 12/20/24 06:33 66 20 N/Cannula Low lpm 5.0 40 12/20/24 04:00 97.5 57 19 115/73 95 Nasal Cannula 5.0 LABS: Hematology Labs: Test 12/20/24 04:39 Range/Units White Blood Count 7.2 4.8-10.8 K/uL Red Blood Count 4.38 L 4.50-6.20 MIL/uL Hemoglobin 14.1 14.0-18.0 g/dL Hematocrit 42.0 42-54 % Mean Corpuscular Volume 95.9 79-99 fL Mean Corpuscular Hemoglobin 32.2 27.0-33.0 pg Mean Corpuscular Hemoglobin Concent 33.6 32.0-36.0 g/dL Red Cell Distribution Width 12.8 11.0-15.5 % Platelet Count 187 130-400 K/uL Mean Platelet Volume 9.6 7.5-10.5 fL Immature Granulocyte % (Auto) 0.3 0-1 % Neutrophils (%) (Auto) 85.0 H 40.0-77.0 % Lymphocytes (%) (Auto) 12.1 L 21.0-51.0 % Monocytes (%) (Auto) 1.8 L 3.0-13.0 % Eosinophils (%) (Auto) 0.1 0.0-8.0 % Basophils (%) (Auto) 0.7 0.0-5.0 % Neutrophils # (Auto) 6.1 1.8-7.7 K/uL Lymphocytes # (Auto) 0.9 L 1.0-4.8 K/uL Monocytes # (Auto) 0.1 0.1-1.0 K/uL Eosinophils # (Auto) 0.01 0.00-0.70 K/uL Basophils # (Auto) 0.05 0.00-0.20 K/uL Absolute Immature Granulocyte (auto 0.02 0-1 K/uL Nucleated Red Blood Cells 0.0 0.0-0.19 % Chemistry Labs: Test 12/20/24 04:39 12/19/24 09:00 12/19/24 08:14 12/18/24 11:37 Range/Units Sodium Level 141 136-145 mmol/L Potassium Level 4.2 3.5-5.1 mmol/L Chloride Level 107 101-111 mmol/L Carbon Dioxide Level 28 21-32 mmol/L Blood Urea Nitrogen 14 7-18 mg/dL Creatinine 0.7 0.5-1.3 mg/dL Glomerular Filtration Rate Calc 97 >90 mL/min Random Glucose 135 H 70-105 mg/dL Total Calcium 8.0 L 8.5-10.1 mg/dL Magnesium Level 2.00 1.80-2.40 mg/dL Hemoglobin A1c 5.9 4.0-6.0 % Estimated Average Glucose (eAG) 123 70-126 mg/dL Total Bilirubin 0.6 0.2-1.0 mg/dL Aspartate Amino Transf (AST/SGOT) 31 10-37 U/L Alanine Aminotransferase (ALT/SGPT) 27 12-78 U/L Alkaline Phosphatase 64 50-136 U/L Troponin I High Sensitivity 288 *H 4-75 ng/L Total Protein 6.3 6.0-8.3 g/dL Albumin 2.8 L 3.5-5.0 g/dL Whole Blood Glucose 105 70-110 MG/DL B-Type Natriuretic Peptide 16 0-100 pg/mL Coagulation Labs: Test 12/20/24 07:32 12/19/24 08:28 12/18/24 17:14 Range/Units Activated Partial Thromboplast Time 70.3 H 26.3-35.5 SEC Prothrombin Time 11.4 9.6-11.6 SEC Prothromb Time International Ratio 1.02 0.85-1.15 D-Dimer Quantitative (PE/DVT) 902 *H 0-500 ng/mL DIAGNOSTICS / RADIOLOGY RESULTS: [Reviewed] PLAN NEURO: Minimize central acting medications as possible. Maintain fall precautions, adequate lighting during the day PULMONARY: Supplemental 02 as needed. Maintain aspiration precautions at all times CARDIOVASCULAR: Follow hemodynamics. Vital signs per facility protocol GI & NUTRITION: Continue with nutritional support. Continue stool softeners and laxatives as needed. KIDNEYS & ELECTROLYTES: Strict monitoring of intake, output and overall fluid balance. Avoid nephrotoxic medications to the extent possible. Medications to be dosed according to renal function. Monitor electrolytes and replace as needed ENDOCRINE: Maintain blood glucose between 100-180 at all times. Hypoglycemia protocol in place INFECTIOUS DISEASE: Trend temperature, WBC and procalcitonin level Follow cultures, deescalate antibiotics as soon as possible. Panculture if new onset fever ONCOLOGY/HEMATOLOGY/COAGULATION: Monitor for s/s of bleeding Monitor hemoglobin, coagulation studies as needed SKIN: Pressure ulcer prevention per facility protocol Specialty mattress ORTHO/REHAB: Continue PT/OT Prophylaxis: Continue GI and DVT prophylaxis Code Status: Full Resuscitation Disposition: TBD Other: Total patient care time exceeds 35 minutes excluding all procedures. ELIZABETH GRIFFITHS Dec 20, 2024 10:31
--- NOTE | 2024-12-20 13:16 | PN ---
[facility] PROGRESS NOTE Date of Service: Dec 20, 2024 Time of Service: 13:07 SUBJECTIVE: This 74-year-old male with past medical history of hypertension, hyperlipidemia, history of pulmonary fibrosis, BPH, history of CAD status post stent placement presented to the hospital secondary to chest pain. Patient states around 8:00 a.m. today he noted that he was having midsternal chest pain which would radiate towards his left side of the neck. He felt his pain was similar to prior episode of heart attack with associated pressure sensation. He took nitroglycerin x2 which relieved the pain. He stated that the pain lasted for more than an hour. Denied any paresthesias associated with the pain but he felt nauseated and had episodes of headache. Denied any fever, chills, shortness of breath. States he has history of pulmonary fibrosis and is respiratory symptoms are at baseline. Denied any abdominal pain, changes in his bowel movement. Denied any falls, syncopal episode. Patient took his medications in the morning prior to coming to the hospital. Labs showed white count of 5.5, hemoglobin was 14.8 Platelet count is 193 K, sodium was 140, potassium was 3.7, creatinine was 0.9 magnesium was 1.6, blood glucose was 148, troponin was negative x1, BNP was negative On presentation to the ED patient's blood pressure was noted to be 75/41, patient was on3 L nasal cannula saturating 93%. Patient's heart rate was 73 12/19/2024 - patient is seen at bedside in room ED 5. Patient is in mild distress and continued to complain of chest pain. Patient continues on heparin drip while we checked for lung V/Q scan, lower extremity Doppler. Lung V/Q scan revealed intermediate probability for pulmonary embolism, lower extremity Doppler is negative for any DVT. Cardiology and pulmonology are consulted on the case. Cardiology suggested the troponin elevation is thought to be due to type 2 RI induced by the transient hypotension and PE and not due to ACS. Patient is still pending on 2D echocardiogram. Patient is started on his home medication. Patient is currently hemodynamically stable with temperature 98.6, pulse 84, respiratory rate 20, blood pressure 141/76, saturating at 92% on5 L oxygen nasal cannula. Patient's labs show WBC 7.8, hemoglobin 14.4 And chemistries show sodium 143, potassium 3.7, creatinine 0.6, BUN 12and troponin trended down to 288 from 362 patient will be monitored closely. We will follow cardiology and pulmonology recommendations 12/20/2024 - patient is seen at bed side . Patient is resting comfortably wit hout any chest pain. Patient continues on heparin drip, awaiting Cardiology and pulmonology recommendations on the case. we decided to get a definitive diagnosis on the patient and wanted to rule out PE . since patient has iodine allergy , patient will be planned to pre medication for Iodine allergy and then perform a CT CHEST PE on him . patient is currently continued with the same medical management . Patient is hemodynamically stable with temperature 97.9, pulse 76, respiratory rate 16, blood pressure 124/76, saturating at 98% on 2 L oxygen nasal cannula patient's labs show WBC 7.2, hemoglobin 14.1 And chemistries show sodium 141, potassium 4.2, creatinine 0.7, BUN 14. Patient will be followed closely, patient has LVEF of 55%. REVIEW OF SYSTEMS CONSTITUTIONAL: Denies fevers, chills, or night sweats. No unintentional weight loss reported. NEUROLOGICAL: Denies headache, amaurosis fugax, motor weakness, sensory deficit, vertigo/spinning sensation, gait abnormalities, or tremors. ENT: No hearing loss, otalgia, otorrhea, rhinitis, rhinorrhea, hoarseness, or sore throat. CARDIOVASCULAR: Positive for chest pain at rest. Denied any PND, orthopnea, shortness for breath PULMONARY: Denies any shortness of breath,hemoptysis, pleuritic chest pain. Positive for cough GASTROINTESTINAL: Denies any type of dysphagia to either liquids or solids. Denies nausea, vomiting, pyrosis, early satiety, abdominal pain, diarrhea, constipation, or changes in stool consistency or caliber. Denies coffee-ground emesis, hematemesis, hematochezia, or melanotic stools. GENITOURINARY: Denies frequency, urgency, nocturia, hematuria or incontinence (Storage/Irritative symptoms.) Low urinary stream, straining to void, urinary intermittency or hesitancy, splitting of the voiding stream, terminal dribbling. ENDOCRINOLOGIC: Denies polyuria, polydipsia, polyphagia or heat/cold intolerances. HEMATOLOGIC: Denies thrombophilia/previous clots, or coagulopathy/bleeding disorders. ONCOLOGIC: Denies personal history of malignancy. DERMATOLOGIC: Denies rashes or pruritus. PSYCHIATRIC: Denies any suicidal or homicidal ideation. Denies hallucinations. PHYSICAL EXAM GENERAL APPEARANCE: The patient is awake, alert, and oriented, in no acute cardiopulmonary distress. NEUROLOGICAL: Cranial nerves II-XII grossly intact. Motor is 5/5 in bilateral upper and lower extremities proximal to distal. No sensory deficits. HEENT: Face is symmetric. Pupils are equal and reactive. Extraocular movements are intact. NECK: Supple. No JVD. No thyromegaly. No submental, submandibular, pre- /postauricular, occipital or supraclavicular lymphadenopathy. CHEST: Normal chest expansion. No Telemetry. LUNGS: He has basilar crackles present bilaterally CARDIOVASCULAR: Regular. S1 and S2 normal. No appreciable rubs, murmurs or gallops. ABDOMEN: Soft, nontender, and nondistended. There is no rebound, voluntary guarding, or rigidity. : Deferred. No Rider. EXTREMITIES: Non-edematous and not cyanotic. No clubbing. Good capillary refill. SKIN: No skin breakdown. Vital Signs (last 8hr) Date Time Temp Pulse Resp B/P (MAP) Pulse Ox O2 Delivery O2 Flow Rate FiO2 12/20/24 11:18 97.9 76 16 124/76 98 Nasal Cannula 3.0 12/20/24 09:00 92 Nasal Cannula* 3 32 12/20/24 08:15 98.6 73 20 123/74 92 Nasal Cannula 3.0 12/20/24 06:33 66 20 N/Cannula Low lpm 5.0 40 LABS: Laboratory: Test 12/20/24 07:32 12/20/24 04:39 12/19/24 12:26 12/19/24 09:00 Range/Units Activated Partial Thromboplast Time 70.3 H 26.3-35.5 SEC White Blood Count 7.2 4.8-10.8 K/uL Red Blood Count 4.38 L 4.50-6.20 MIL/uL Hemoglobin 14.1 14.0-18.0 g/dL Hematocrit 42.0 42-54 % Mean Corpuscular Volume 95.9 79-99 fL Mean Corpuscular Hemoglobin 32.2 27.0-33.0 pg Mean Corpuscular Hemoglobin Concent 33.6 32.0-36.0 g/dL Red Cell Distribution Width 12.8 11.0-15.5 % Platelet Count 187 130-400 K/uL Mean Platelet Volume 9.6 7.5-10.5 fL Immature Granulocyte % (Auto) 0.3 0-1 % Neutrophils (%) (Auto) 85.0 H 40.0-77.0 % Lymphocytes (%) (Auto) 12.1 L 21.0-51.0 % Monocytes (%) (Auto) 1.8 L 3.0-13.0 % Eosinophils (%) (Auto) 0.1 0.0-8.0 % Basophils (%) (Auto) 0.7 0.0-5.0 % Neutrophils # (Auto) 6.1 1.8-7.7 K/uL Lymphocytes # (Auto) 0.9 L 1.0-4.8 K/uL Monocytes # (Auto) 0.1 0.1-1.0 K/uL Eosinophils # (Auto) 0.01 0.00-0.70 K/uL Basophils # (Auto) 0.05 0.00-0.20 K/uL Absolute Immature Granulocyte (auto 0.02 0-1 K/uL Nucleated Red Blood Cells 0.0 0.0-0.19 % Sodium Level 141 136-145 mmol/L Potassium Level 4.2 3.5-5.1 mmol/L Chloride Level 107 101-111 mmol/L Carbon Dioxide Level 28 21-32 mmol/L Blood Urea Nitrogen 14 7-18 mg/dL Creatinine 0.7 0.5-1.3 mg/dL Glomerular Filtration Rate Calc 97 >90 mL/min Random Glucose 135 H 70-105 mg/dL Total Calcium 8.0 L 8.5-10.1 mg/dL Magnesium Level 2.00 1.80-2.40 mg/dL Blood Gas Specimen Type Arterial Arterial Blood pH 7.412 7.350-7.450 Arterial Blood Partial Pressure CO2 40 35-48 mmHg Arterial Blood Partial Pressure O2 56.6 L 83.0-108.0 mmHg Arterial Blood HCO3 25.0 21.0-28.0 mmol/L Arterial Blood Oxygen Saturation 90.4 L 94.0-98.0 % Arterial Blood Base Excess 0.4 -2.0-3.0 mmol/L Hemoglobin (Blood Gas) 14.6 13.5-17.5 g/dL Sodium (Blood Gas) 136 136-145 MMOL/L Bedside Potassium (Blood Gas) 3.6 3.4-4.5 MMOL/L Bedside Chloride (Blood Gas) 105 98-107 MMOL/L Bedside Glucose (Blood Gas) 103 H 65-95 MG/DL Bedside Ionized Calcium (Blood Gas) 1.10 L 1.15-1.33 MMOL/L Bedside Lactic Acid (Blood Gas) 1.00 H 0.36-0.75 MMOL/L Blood Gas Temperature 37.0 35.5-37.0 CELSIUS Blood Gas Flow-by 5.00 0.00-15.00 L/min Blood Gas Vent Mode NC ROOM AIR FiO2 40.0 % Blood Gas Specimen Comment RR SIRIA RN Hemoglobin A1c 5.9 4.0-6.0 % Estimated Average Glucose (eAG) 123 70-126 mg/dL Total Bilirubin 0.6 0.2-1.0 mg/dL Aspartate Amino Transf (AST/SGOT) 31 10-37 U/L Alanine Aminotransferase (ALT/SGPT) 27 12-78 U/L Alkaline Phosphatase 64 50-136 U/L Troponin I High Sensitivity 288 *H 4-75 ng/L Total Protein 6.3 6.0-8.3 g/dL Albumin 2.8 L 3.5-5.0 g/dL Test 12/19/24 08:28 12/19/24 08:14 12/19/24 02:56 12/18/24 17:14 Range/Units Prothrombin Time 11.4 9.6-11.6 SEC Prothromb Time International Ratio 1.02 0.85-1.15 Whole Blood Glucose 105 70-110 MG/DL Urine Color YELLOW YELLOW Urine Appearance CLEAR CLEAR Urine pH 5.5 5.0-8.0 Urine Specific [place] 1.020 1.001-1.031 Urine Protein NEGATIVE NEGATIVE mg/dL Urine Glucose (UA) NEGATIVE NEGATIVE mg/dL Urine Ketones NEGATIVE NEGATIVE mg/dL Urine Occult Blood NEGATIVE NEGATIVE Urine Nitrate NEGATIVE NEGATIVE Urine Bilirubin NEGATIVE NEGATIVE mg/dL Urine Urobilinogen 0.2 0.2-1.0 mg/dL Urine Leukocyte Esterase NEGATIVE NEGATIVE [place]/uL D-Dimer Quantitative (PE/DVT) 902 *H 0-500 ng/mL Current Medications Medications (Trade) Dose Ordered Sig/Anne Route PRN Reason Start Time Stop Time Status Last Admin Dose Admin Acetaminophen (TYLenol 500MG TAB) 500 mg Q6H PRN PO MILD PAIN (1-3) 12/18/24 17:00 01/17/25 16:59 12/19/24 19:55 500 MG Albuterol Sulfate (Proventil 0.083% 2.5mg/3ml) 2.5 mg [id number] PRN IH SHORTNESS OF BREATH/WHEEZING 12/19/24 22:30 01/18/25 22:29 Apixaban (EliquIS) 5 mg BID PO 12/27/24 09:00 01/26/25 08:59 Apixaban (EliquIS) 10 mg BID PO 12/20/24 09:00 12/27/24 08:59 12/20/24 09:17 10 MG Aspirin (Aspirin 81mg Chew Tab) 81 mg DAILY PO 12/19/24 09:00 12/19/24 12:26 DC 12/19/24 10:41 81 MG Atorvastatin Calcium (LIPItor 40MG) 80 mg DAILY PO 12/19/24 09:00 01/18/25 08:59 12/20/24 09:16 80 MG Diltiazem HCl (CARDIzem 120MG CD) 120 mg DAILY PO 12/20/24 09:00 01/19/25 08:59 12/20/24 09:17 120 MG Diltiazem HCl (CARDIzem 120MG CD) 120 mg ONCE PO 12/19/24 09:30 12/19/24 09:19 DC Enoxaparin Sodium (Lovenox) 30 mg DAILY SQ 12/19/24 09:00 12/18/24 18:10 DC Famotidine (Pepcid 20mg Vial) 20 mg BID IV 12/18/24 21:00 01/17/25 20:59 12/20/24 09:18 20 MG Heparin Sodium (Porcine) (HEParin 5,000 UNIT VIAL) *calculation based on ACTUAL B... AD PRN IV HEPARIN PROTOCOL 12/18/24 19:00 12/20/24 08:40 DC 12/18/24 18:46 5,610 UNIT Heparin Sodium/ Dextrose 250 ml @ 0 mls/hr Q6H IV 12/18/24 19:00 12/20/24 08:40 DC 12/19/24 17:15 11.3 MLS/HR Home Med (Home Medication) BID PRN IH SHORTNESS OF BREATH/WHEEZING 12/19/24 04:00 01/18/25 03:59 Hydralazine HCl (APRESOLine 20MG INJ) 10 mg Q6H PRN IV ADMINISTER FOR SBP > 180 12/18/24 17:00 01/17/25 16:59 Ipratropium Gabriels (AtrovENT UD) 0.5 mg [id number] PRN IH SHORTNESS OF BREATH/WHEEZING 12/19/24 22:30 01/18/25 22:29 Isosorbide Mononitrate (Imdur 30mg Sr) 30 mg DAILY PO 12/20/24 09:00 01/19/25 08:59 12/20/24 09:18 30 MG Losartan Potassium (CozAAR 50 mg TAB) 50 mg DAILY PO 12/20/24 09:00 01/19/25 08:59 12/20/24 09:16 50 MG Magnesium Sulfate 50 ml @ 0 mls/hr PROTOCOL PRN IV hypomagnesemia 12/18/24 17:00 01/17/25 16:59 12/18/24 22:31 25 MLS/HR Methylprednisolone Sodium Succinate (Solu-medROL 40MG) 20 mg BID IVP 12/19/24 22:30 01/18/25 22:29 12/20/24 09:18 20 MG Morphine Sulfate (morPHINE 2MG SYG) 2 mg Q6H PRN IVP SEVERE PAIN (7-10) 12/18/24 17:00 12/25/24 16:59 12/19/24 14:39 2 MG Nitroglycerin (Nitrostat) 0.4 mg AD PRN SL CHEST PAIN 12/18/24 17:00 01/17/25 16:59 Potassium Chloride 100 ml @ 100 mls/hr AD PRN IV POTASSIUM PROTOCOL 12/18/24 17:00 01/17/25 16:59 Potassium Chloride (K-Dur/Klor-Con 20meq) 20 meq AD PRN PO POTASSIUM PROTOCOL 12/18/24 17:00 01/17/25 16:59 Potassium Chloride (KCl 10% Elixir 20meq/15ml) 20 meq AD PRN PO POTASSIUM PROTOCOL 12/18/24 17:00 01/17/25 16:59 Prasugrel (Effient 10mg) 10 mg DAILY PO 12/19/24 09:00 01/18/25 08:59 12/20/24 09:16 10 MG Ranolazine (Ranexa) 1,000 mg BID PO 12/19/24 21:00 01/18/25 20:59 12/20/24 09:16 1,000 MG DIAGNOSTICS / RADIOLOGY: PATIENT: RIKY EDWARDS MR#: [id number] : 1950 SEX: M AGE: 74 LOCATION: [facility] ORDER 57 STATUS: ADM IN REPORT#: [id number] SERVICE 53 REASON: chest pain ORDERING PHYSICIAN: PEARL TAM MD PROCEDURE: ECHO CMP - ECHO 2-D COMPLETE APPROVED REPORT EXAM: Two-dimensional and M-mode echocardiogram with Doppler and color Doppler. INDICATION ICD: Chest Pain 2D Dimensions RVDd 3.5 cm LVEF(%) 47.5 (>50%) LVED Vol(simp.) 84.4 mL IVSd 1.1 (0.7-1.1cm) FS(%) 24 % LVES Vol(simp.) 33.1 mL LVDd 5.0 (3.8-5.6cm) LA (2D) 4.0 (1.6-4.0cm) LVEF(%, simp.) 61 % PWd 1.1 (0.7-1.1cm) Ao Root(2D) 3.1 (2.0-3.7cm) LA ESV INDEX (4CH) 24.50 mL/m2 IVSs 1.2 cm LVOT diam 2.2 (1.8-2.4cm) LA ESV INDEX (2CH) 33.20 mL/m2 LVDs 3.8 (2.5-4.0cm) LA ESV INDEX (BP) 31.90 mL/m2 PWs 1.6 cm Deformation Strain Apical 4 19.0 % Apical 2 21.0 % Apical 3 15.0 % Global Strain 18.0 % M-Mode Dimensions EPSS 1.2 cm LA (MM) 4.1 (1.6-4.0cm) Ao Root(MM) 3.4 (2.0-3.7cm) Aortic Valve AoV VTI 0.3 m Ao Mean GR 5.0 mmHg LVOT VTI 0.18 m KIAN (VMAX) 2.0 cm2 KIAN (VTI) 2.0 cm2 Mitral Valve MV E Vmax 105.7 cm/s DECEL Time 187 ms MV A Vmax 114.0 cm/s P 1/2 T 66 ms E/A ratio 0.9 MVA (PHT) 3.3 cm2 TDI E/E' Medial 22.0 E/E' Lateral 12.1 Medial E' Peak V 4.80 cm/s Lateral E' Peak V 8.70 cm/s Pulmonary Valve PV Vmax 1.2 m/s PV Peak GR 5.6 mmHg Left Ventricle The left ventricle is normal in size. No regional wall motion abnormalities noted. Mild concentric left ventricular hypertrophy. Left ventricular systolic function is normal, estimated LVEF is 55%. Stage I diastolic dysfunction. Right Ventricle The right ventricle is normal size. The right ventricular systolic function is normal. Atria The left atrial size is normal. The right atrium size is normal. Aortic Valve Aortic valve is trileaflet. The leaflets are mildly thickened and calcified. Trace aortic regurgitation. There is no aortic valvular stenosis. Mitral Valve Mild mitral annular calcification is noted. The leaflets are mildly thickened and calcified. Trace mitral regurgitation. There is no mitral valve stenosis. Tricuspid Valve The tricuspid valve is normal in structure and function. Trace tricuspid regurgitation. RVSP is normal. Pulmonic Valve Pulmonic valve is not well visualized. Great Vessels The aortic root is normal in size. The IVC is normal in size and collapses >50% with inspiration. Pericardium No pericardial effusion. Conclusion The cardiac chambers are normal in size. Mild concentric left ventricular hypertrophy. No regional wall motion abnormalities noted. Left ventricular systolic function is normal, estimated LVEF is 55%. Stage I diastolic dysfunction. Trace aortic regurgitation. Trace mitral regurgitation. Trace tricuspid regurgitation. PASP is normal. No pericardial effusion. DICTATED BY: PEDRO CORONADO MD DATE: 12/19/2424 ELECTRONICALLY SIGNED BY: PEDRO CORONADO MD DATE: 12/20/24 [id number] ASSESSMENT: Chest pain ACS rule out POA History of CAD status post stent placement in proximal to mid LAD History of pulmonary fibrosis Hypotension improved likely in setting of polypharmacy from multiple antihypertensive medications and nitroglycerin History of hypertension History of hyperlipidemia Iodine allergy PLAN: - patient to be admitted to medical-surgical unit with telemetry -in reference to chest pain. We will trend troponins q.6 hours to rule out ACS. We will also obtain echocardiogram. Secondary to patient's risk factors we will request consultation with Cardiology -obtain patient's home medications she will be reconciled once available. We will closely monitor blood pressure. We will restart antihypertensives accordingly -check TSH, A1c, D-dimer. If elevated we will consider V/Q scan in setting of Iodine in allergy - further orders per hospitalization course Advanced Care Planning Which of the following were discussed: Hospice care: Yes __ No _x_ Therapeutic options: Yes __ No __ Advance directives: Yes __ No __ Other discussions: Discussed with who?: patient (Patient, family or surrogates) Voluntary nature of this service was explained to the patient? Yes _x_ No __ Amount of time spent: 25 minutes Pearl Tam MD ATTESTATION BY PHYSICIAN I have seen and examined the patient. I reviewed the documentation, medical decision making, and treatment plan as noted by the Resident provider above. I agree with the findings and plan of care. Estuardo Mccauley MD, KEERTI K MD Dec 20, 2024 13:16
[2024-12-20] MEDS ORDERED: DiphenhydrAMINE HCL 50 MG/ML VIAL IV PRN (18:00)
[2024-12-20] MEDS: DiphenhydrAMINE HCL 50 MG/ML VIAL IV SCH (18:12)
[2024-12-20] MEDS: Solu-medROL 125MG VIAL IVP SCH ×2 (18:12→23:36)
--- NOTE | 2024-12-20 18:21 | PN ---
Cardiology Progress Note Date of Service: 12/20/2024 Attending Fireboat Operator: Dr. Ryan Dejesus Reason for Consult: Elevated troponin Problem List: -Chest pain -Transient hypotension -Elevated D Dimer level, segmental defect of the left lower lobe, right upper lobe, and right lower lobe on VQ scan done 12/18/2024, with intermediate probability for PE -Elevated troponin (type II ME) -Electrolyte derangement -HTN -HLP -Restrictive lung disease/IPF on home oxygen -CAD/ME in 2014, s/p PCI with CESAR placement in the mid RCA done in 2015, NSTEMI s/p PCI with CESAR placement (Xience Skypoint 3.5x23 mm) in the proximal-mid LAD, CESAR placement (Xience Skypoint 3.5x28 mm) in the mid LAD, and PTCA in the ostial Septal1 done on 04/19/2024 -HFpEF (LVEF: 55% by echo done 12/19/2024) -BPH Subjective: This is a 74y/o male who was seen and evaluated at the bedside today. The patient denies any recurrent chest pain, chest pressure, palpitations, or shortness of breath. As per the nurse, there were no overnight events. Vitals/Labs Vital Signs Date Time Temp Pulse Resp B/P (MAP) Pulse Ox O2 Delivery O2 Flow Rate FiO2 12/20/24 17:13 98.6 79 16 128/86 93 Nasal Cannula 3.0 12/20/24 09:00 32 General: Alert and oriented. NAD. Chronically ill appearing. HEENT: NC/AT. Oral mucosa is moist. Neck: No masses, JVD, or carotid bruits Lungs: NRD. SCM. Bilateral air entry. Fine rhonchi noted throughout. Cardio: Regular rate. Distant, but normal S1 and S2, +S4. No obvious murmurs, gallops, or rubs noted. Abdomen: Soft. NT. ND. Normal active bowel sounds x 4 quadrants. Extremities: Diminished throughout. Hyperpigmentation noted to the bilateral lower extremities with scabbing noted to the left shirley. No edema, clubbing, or cyanosis. Neuro: CN II-XII were grossly intact. No obvious focal deficits. Laboratory Tests 12/20/24 04:39 Problem List: -Chest pain -Transient hypotension -Elevated D Dimer level, segmental defect of the left lower lobe, right upper lobe, and right lower lobe on VQ scan done 12/18/2024, with intermediate probability for PE -Elevated troponin (type II ME) -Electrolyte derangement -HTN -HLP -Restrictive lung disease/IPF on home oxygen -CAD/ME in 2014, s/p PCI with CESAR placement in the mid RCA done in 2015, NSTEMI s/p PCI with CESAR placement (Xience Skypoint 3.5x23 mm) in the proximal-mid LAD, CESAR placement (Xience Skypoint 3.5x28 mm) in the mid LAD, and PTCA in the ostial Septal1 done on 04/19/2024 -HFpEF (LVEF: 55% by echo done 12/19/2024) -BPH Plan: 1. Elevated D Dimer level, segmental defect of the left lower lobe, right upper lobe, and right lower lobe on VQ scan done 12/18/2024, with intermediate probability for PE -Stable -D Dimer: 902 -VQ scan 12/18/2024: Segmental size defect in the left lower lobe, right upper lobe, and right lower lobe. Intermediate probability for PE. -We will transition the patient from the IV heparin infusion to to oral anticoagulation with Eliquis 10 mg BID x 7 days, followed by 5 mg BID thereafter (12/27/2024). 2. Elevated troponin (type II ME) -Stable -HS troponin I peak: 362 -2D echocardiogram 12/19/2024: The cardiac chambers are normal in size. Mild concentric LVH with no regional wall motion abnormalities noted. LV systolic function is normal with an estimated LVEF of 55% with stage I diastolic dysfunction. Trace AR, MR, and TR. PASP is normal. No pericardial effusion. -The elevated troponin is thought to be a type II ME (demand ischemia) induced by the transient hypotension and PE, and not secondary to ACS. -As a result, we do not recommend any further ischemic cardiac workup and instead we recommend treating the PE. See plan 1 for treatment recommendations. -In the meantime, the patient will continue on prasugrel 10 mg daily, diltiazem CD 120 mg daily, isosorbide mononitrate ER 30 mg daily, ranolazine ER 1000 mg BID, and atorvastatin 80 mg QHS. We will be signing off of the case. Please have the patient follow up with Cardiology, Dr. Ryan Dejesus, 2-3 weeks after discharge. This case was seen and discussed with my Supervising Physician, Dr. Ryan Dejesus, and the above mentioned plan was formulated and agreed upon. -Progress Note written by Carlene Bright, MSN, PHOTOGRAPHIC MACHINE OPERATOR, AGACNP-BS CARLENE BRIGHT NP Dec 20, 2024 18:21
--- NOTE | 2024-12-20 20:20 | NUR ---
MEDS SHIFT ASSESSMENT DONE, PLEASE REFER TO CHART. DUE MEDS ADMINISTERED, TOLERATED WELL. KEPT RESTED AND COMFORTABLE IN BED. CALL LIGHT WITHIN REACH. KEPT ON O2 AT 3LPM VIA NC. INSTRUCTED TO BE NPO POST MN FOR CT SCAN IN AM. PT VERBALIZES UNDERSTANDING.
[2024-12-21] VITALS: BP 116/75; PULSE 79; RESP 18; TEMP 97.7
[2024-12-21 03:53] LABS: BASOPHILS # (AUTO) 0.02 K/uL (0.00-0.20); BASOPHILS % (AUTO) 0.1 % (0.0-5.0); HEMATOCRIT 40.6 % (42-54); IMMATURE GRANULOCYTE ABSOLUTE 0.12 K/uL (0-1); LYMPHOCYTES # (AUTO) 1.4 K/uL (1.0-4.8); LYMPHOCYTES % (AUTO) 9.1 % (21.0-51.0); MEAN CORPUSCULAR HEMOGLOBIN 33.3 pg (27.0-33.0); MEAN CORPUSCULAR HGB CONC 34.7 g/dL (32.0-36.0); MEAN CORPUSCULAR VOLUME 95.8 fL (79-99); MONOCYTES # (AUTO) 0.3 K/uL (0.1-1.0); MONOCYTES % (AUTO) 1.7 % (3.0-13.0); NEUTROPHILS # (AUTO) 13.4 K/uL (1.8-7.7); NEUTROPHILS % (AUTO) 88.3 % (40.0-77.0); PLATELET COUNT (AUTO) 200 K/uL (130-400); RED BLOOD CELL COUNT(AUTO) 4.24 MIL/uL (4.50-6.20); WHITE BLOOD COUNT (AUTO) 15.1 K/uL (4.8-10.8)
[2024-12-21 04:00] VITALS: BP 111/81; PULSE 69; RESP 19; TEMP 97.7
[2024-12-21 04:01] LABS: CREATININE 0.7 mg/dL (0.5-1.3); POTASSIUM 3.9 mmol/L (3.5-5.1)
[2024-12-21 05:10] LABS: WBC MORPHOLOGY CONSISTENT W/DIFF
[2024-12-21] MEDS ORDERED: IOHEXOL-350 75 ML VIAL IV ONE (05:58)
--- NOTE | 2024-12-21 06:20 | NUR ---
CT PT JUST GOT BACK IN ROOM FROM CT SCAN. PLACED COMFORTABLY IN BED WITH HOB. MAINTAINED ON O2 AT 3LPM VIA NC. CALL LIGHT WITHIN REACH. FOR MORE CARE.
[2024-12-21 07:09] VITALS: PULSE 73; RESP 20; O2SAT 92
[2024-12-21 08:00] VITALS: BP 147/77; PULSE 71; RESP 19; TEMP 97.5
--- NOTE | 2024-12-21 08:30 | HMCIMG ---
CT angiogram chest CLINICAL INDICATION: PE ? H/O Iodine skin allergy ,pre-medicate with solumedrol & benadryl COMPARISON: None. CT Dose Index (CTDI): 113.50 mGy Dose Length Product (DLP): 1408.10 total mGy PROTOCOL: Contrast: 100 cc of Isovue-370, injected IV, no complications Examination is done at 2.5 millimeter volumetric acquisition after contrast administration. Photography is done at 5 millimeter thick intervals for the thorax. FINDINGS: There is no evidence of pulmonary embolism. The airway is intact. The trachea and major bronchi are unremarkable. Severe interstitial pulmonary fibrotic changes are seen bilaterally. No airspace disease to suggest pneumonia at this time. No pleural effusions are identified. The exam of the karen and mediastinum is unremarkable. No evidence of hilar enlargement is seen. The aorta shows no aneurysmal dilatation or significant atheromatous calcification. There is no thoracic aortic dissection. No significant brachiocephalic vascular abnormalities are seen. The heart is unremarkable. It is not enlarged. No significant coronary arterial calcifications are seen. There is no pericardial effusion. The rib cage appears unremarkable. The soft tissues of the chest wall are unremarkable. The dorsal spine shows no significant abnormalities. Limited evaluation of the upper abdomen demonstrates no gross abnormalities. IMPRESSION: No evidence of pulmonary embolism. Interstitial pulmonary fibrotic changes. No pneumonia. This study was performed using dose reduction techniques to include automated exposure control and/or adjustment of the mA and/or kV according to patient size.
[2024-12-21 09:00] VITALS: O2SAT 87
[2024-12-21 12:00] VITALS: BP_SYST 104; BP_SYST 116; BP_DIAS 64; BP_DIAS 71; PULSE 73; PULSE 84; RESP 16; RESP 19; TEMP 97.5; TEMP 98.1
--- NOTE | 2024-12-21 15:29 | DS ---
Discharge Summary Hospital Course Summary: This 74-year-old male with past medical history of hypertension, hyperlipidemia, history of pulmonary fibrosis, BPH, history of CAD status post stent placement presented to the hospital secondary to chest pain. Patient states around 8:00 a.m. today he noted that he was having midsternal chest pain which would radiate towards his left side of the neck. He felt his pain was similar to prior episode of heart attack with associated pressure sensation. He took nitroglycerin x2 which relieved the pain. He stated that the pain lasted for more than an hour. Denied any paresthesias associated with the pain but he felt nauseated and had episodes of headache. Denied any fever, chills, shortness of breath. States he has history of pulmonary fibrosis and is respiratory symptoms are at baseline. Denied any abdominal pain, changes in his bowel movement. Denied any falls, syncopal episode. Patient took his medications in the morning prior to coming to the hospital. Labs showed white count of 5.5, hemoglobin was 14.8 Platelet count is 193 K, sodium was 140, potassium was 3.7, creatinine was 0.9 magnesium was 1.6, blood glucose was 148, troponin was negative x1, BNP was negative On presentation to the ED patient's blood pressure was noted to be 75/41, patient was on3 L nasal cannula saturating 93%. Patient's heart rate was 73 12/19/2024 - patient is seen at bedside in room ED 5. Patient is in mild distress and continued to complain of chest pain. Patient continues on heparin drip while we checked for lung V/Q scan, lower extremity Doppler. Lung V/Q scan revealed intermediate probability for pulmonary embolism, lower extremity Doppler is negative for any DVT. Cardiology and pulmonology are consulted on the case. Cardiology suggested the troponin elevation is thought to be due to type 2 SD induced by the transient hypotension and PE and not due to ACS. Patient is still pending on 2D echocardiogram. Patient is started on his home medication. Patient is currently hemodynamically stable with temperature 98.6, pulse 84, respiratory rate 20, blood pressure 141/76, saturating at 92% on5 L oxygen nasal cannula. Patient's labs show WBC 7.8, hemoglobin 14.4 And chemistries show sodium 143, potassium 3.7, creatinine 0.6, BUN 12and troponin trended down to 288 from 362 patient will be monitored closely. We will follow cardiology and pulmonology recommendations 12/20/2024 - patient is seen at bed side . Patient is resting comfortably without any chest pain. Patient continues on heparin drip, awaiting Cardiology and pulmonology recommendations on the case. we decided to get a definitive diagnosis on the patient and wanted to rule out PE . since patient has iodine allergy , patient will be planned to pre medication for Iodine allergy with Solu-Medrol and Benadryl and then perform a CT CHEST PE on him . patient is currently continued with the same medical management . Patient is hemodynamically stable with temperature 97.9, pulse 76, respiratory rate 16, blood pressure 124/76, saturating at 98% on 2 L oxygen nasal cannula patient's labs show WBC 7.2, hemoglobin 14.1 And chemistries show sodium 141, potassium 4.2, creatinine 0.7, BUN 14. Patient will be followed closely, patient has LVEF of 55%. 12/21/2024 - patient's chest CT came out to be negative for PE, patient is currently asymptomatic and resting comfortably, patient does not have any allergic reactions from the iodine contrast. Patient is otherwise asymptomatic and is feeling well to go home. Patient is advised to use home oxygen at all times. Patient does not need Eliquis because the chest CT came negative for PE. Patient is deemed stable and will be discharged with discharge instructions. Call Center Assistant(s): Cardiology, pulmonology Procedure(s): PATIENT: RIKY EDWARDS MR#: [id number] : 1950 SEX: M AGE: 74 LOCATION: [facility] ORDER 2300 STATUS: ADM IN REPORT#: [id number] SERVICE 0800 REASON: PE ? H/O Iodine skin allergy ,pre-medicate with solumedrol & benadryl ORDERING PHYSICIAN: ALVIN BERNAL MD PROCEDURE: CHES PE - CT CHEST PE PROTOCOL WWO CONT CT angiogram chest CLINICAL INDICATION: PE ? H/O Iodine skin allergy ,pre-medicate with solumedrol & benadryl COMPARISON: None. CT Dose Index (CTDI): 113.50 mGy Dose Length Product (DLP): 1408.10 total mGy PROTOCOL: Contrast: 100 cc of Isovue-370, injected IV, no complications Examination is done at 2.5 millimeter volumetric acquisition after contrast administration. Photography is done at 5 millimeter thick intervals for the thorax. FINDINGS: There is no evidence of pulmonary embolism. The airway is intact. The trachea and major bronchi are unremarkable. Severe interstitial pulmonary fibrotic changes are seen bilaterally. No airspace disease to suggest pneumonia at this time. No pleural effusions are identified. The exam of the karen and mediastinum is unremarkable. No evidence of hilar enlargement is seen. The aorta shows no aneurysmal dilatation or significant atheromatous calcification. There is no thoracic aortic dissection. No significant brachiocephalic vascular abnormalities are seen. The heart is unremarkable. It is not enlarged. No significant coronary arterial calcifications are seen. There is no pericardial effusion. The rib cage appears unremarkable. The soft tissues of the chest wall are unremarkable. The dorsal spine shows no significant abnormalities. Limited evaluation of the upper abdomen demonstrates no gross abnormalities. IMPRESSION: No evidence of pulmonary embolism. Interstitial pulmonary fibrotic changes. No pneumonia. This study was performed using dose reduction techniques to include automated exposure control and/or adjustment of the mA and/or kV according to patient size. DICTATED BY: ERIN DHALIWAL MD DATE: 12/21/24824 ELECTRONICALLY SIGNED BY: ERIN DHALIWAL MD DATE: 12/21/24829 PATIENT: RIKY EDWARDS MR#: [id number] : 1950 SEX: M AGE: 74 LOCATION: [facility] ORDER 57 STATUS: ADM IN REPORT#: [id number] SERVICE 53 REASON: chest pain ORDERING PHYSICIAN: PEARL COUCH MD PROCEDURE: ECHO CMP - ECHO 2-D COMPLETE APPROVED REPORT EXAM: Two-dimensional and M-mode echocardiogram with Doppler and color Doppler. INDICATION ICD: Chest Pain 2D Dimensions RVDd 3.5 cm LVEF(%) 47.5 (>50%) LVED Vol(simp.) 84.4 mL IVSd 1.1 (0.7-1.1cm) FS(%) 24 % LVES Vol(simp.) 33.1 mL LVDd 5.0 (3.8-5.6cm) LA (2D) 4.0 (1.6-4.0cm) LVEF(%, simp.) 61 % PWd 1.1 (0.7-1.1cm) Ao Root(2D) 3.1 (2.0-3.7cm) LA ESV INDEX (4CH) 24.50 mL/m2 IVSs 1.2 cm LVOT diam 2.2 (1.8-2.4cm) LA ESV INDEX (2CH) 33.20 mL/m2 LVDs 3.8 (2.5-4.0cm) LA ESV INDEX (BP) 31.90 mL/m2 PWs 1.6 cm Deformation Strain Apical 4 19.0 % Apical 2 21.0 % Apical 3 15.0 % Global Strain 18.0 % M-Mode Dimensions EPSS 1.2 cm LA (MM) 4.1 (1.6-4.0cm) Ao Root(MM) 3.4 (2.0-3.7cm) Aortic Valve AoV VTI 0.3 m Ao Mean GR 5.0 mmHg LVOT VTI 0.18 m KIAN (VMAX) 2.0 cm2 KIAN (VTI) 2.0 cm2 Mitral Valve MV E Vmax 105.7 cm/s DECEL Time 187 ms MV A Vmax 114.0 cm/s P 1/2 T 66 ms E/A ratio 0.9 MVA (PHT) 3.3 cm2 TDI E/E' Medial 22.0 E/E' Lateral 12.1 Medial E' Peak V 4.80 cm/s Lateral E' Peak V 8.70 cm/s Pulmonary Valve PV Vmax 1.2 m/s PV Peak GR 5.6 mmHg Left Ventricle The left ventricle is normal in size. No regional wall motion abnormalities noted. Mild concentric left ventricular hypertrophy. Left ventricular systolic function is normal, estimated LVEF is 55%. Stage I diastolic dysfunction. Right Ventricle The right ventricle is normal size. The right ventricular systolic function is normal. Atria The left atrial size is normal. The right atrium size is normal. Aortic Valve Aortic valve is trileaflet. The leaflets are mildly thickened and calcified. Trace aortic regurgitation. There is no aortic valvular stenosis. Mitral Valve Mild mitral annular calcification is noted. The leaflets are mildly thickened and calcified. Trace mitral regurgitation. There is no mitral valve stenosis. Tricuspid Valve The tricuspid valve is normal in structure and function. Trace tricuspid regurgitation. RVSP is normal. Pulmonic Valve Pulmonic valve is not well visualized. Great Vessels The aortic root is normal in size. The IVC is normal in size and collapses >50% with inspiration. Pericardium No pericardial effusion. Conclusion The cardiac chambers are normal in size. Mild concentric left ventricular hypertrophy. No regional wall motion abnormalities noted. Left ventricular systolic function is normal, estimated LVEF is 55%. Stage I diastolic dysfunction. Trace aortic regurgitation. Trace mitral regurgitation. Trace tricuspid regurgitation. PASP is normal. No pericardial effusion. DICTATED BY: PEDRO CORONADO MD DATE: 12/19/24923 ELECTRONICALLY SIGNED BY: PEDRO CORONADO MD DATE: 12/20/24129 PATIENT: RIKY EDWARDS MR#: [id number] : 1950 SEX: M AGE: 74 [facility] ORDER 03 STATUS: ADM IN REPORT#: [id number] SERVICE 120 REASON: DVT ORDERING PHYSICIAN: LORNE BRIGHT NP PROCEDURE: VENOUS JEN - US VENOUS DOPPLER BILATERAL Exam Type: US VENOUS DOPPLER BILATERAL Clinical Information: DVT Comparison: None Findings: The examination shows normal deep venous system. There is normal compressibility at all levels. There is no intraluminal clot. There is no occlusion. Adequate response is obtained on augmentation. Impression: No evidence of DVT. DICTATED BY: ERIN DHALIWAL MD DATE: 12/19/241401 ELECTRONICALLY SIGNED BY: ERIN DHALIWAL MD DATE: 12/19/24 140 PATIENT: RIKY EDWARDS MR#: [id number] : 1950 SEX: M AGE: 74 LOCATION: [facility] ORDER 2 STATUS: ADM IN REPORT#: [id number] SERVICE 1 REASON: eval for BLANCA ORDERING PHYSICIAN: ELIZABETH GRIFFITHS PROCEDURE: RENAL - US RENAL SONOGRAM RENAL ARTERY ULTRASOUND. COMPARISON: None available. FINDINGS: There is no significant aortic plaque, and the peak systolic velocity in the aorta is normal before and after the renal artery takeoff bilaterally. The highest peak systolic velocity of the renal arteries is normal bilaterally. Bilateral RAR's are within normal limits. IMPRESSION: No evidence of renal artery stenosis. DICTATED BY: ERIN DHALIWAL MD DATE: 12/19/241908 ELECTRONICALLY SIGNED BY: ERIN DHALIWAL MD DATE: 12/19/241911 PATIENT: RIKY EDWARDS MR#: [id number] : 1950 SEX: M AGE: 74 [facility] ORDER 45 STATUS: ADM IN REPORT#: [id number] SERVICE 43 REASON: elevated d dimer ORDERING PHYSICIAN: PEARL COUCH MD PROCEDURE: PULM VENT - NM PULMONARY/LUNG VENTILATION Exam Type: NM PULMONARY/LUNG VENTILATION Clinical Information: elevated d dimer Comparison: None Findings: Anterior and posterior pulmonary ventilation scan was performed during and following inhalation of 8.8 mCi of technetium 99m DTPA gas and pulmonary perfusion images were performed following intravenous injection of 4.8 mCi of 99m Tc-labeled MAA. Ventilation: homogeneous distribution of the xenon gas in both lungs during the single breath and equilibrium phases. Symmetrical clearance of the xenon gas demonstrated in the wash out phase. No evidence of air trapping. Perfusion: Segmental size defect of the left lower lobe as well as subsegmental defects of the right upper and lower lobe. Impression: Intermediate probability for pulmonary embolism. DICTATED BY: ERIN DHALIWAL MD DATE: 12/19/24823 ELECTRONICALLY SIGNED BY: ERIN DHALIWAL MD DATE: 12/19/24829 PATIENT: RIKY EDWARDS MR#: [id number] : 1950 SEX: M AGE: 74 LOCATION: [facility] ORDER 10 STATUS: REG ER REPORT#: [id number] SERVICE 1109 REASON: CHEST PAIN ORDERING PHYSICIAN: MATTY SHEARER NP PROCEDURE: CXR1VW - CHEST 1VW Exam Type: CHEST 1VW Clinical Information: CHEST PAIN Comparison: None Findings: Pulmonary pattern is as before. No worrisome interval changes have taken place. Impression: Stable exam. DICTATED BY: ERIN DHALIWAL MD DATE: 12/18/241254 ELECTRONICALLY SIGNED BY: ERIN DHALIWAL MD DATE: 12/18/241257 Assessment/Plan: ASSESSMENT: Chest pain, ACS ruled out History of CAD status post stent placement in proximal to mid LAD pulmonary fibrosis POA Hypotension improved likely in setting of polypharmacy from multiple antihypertensive medications and nitroglycerin History of hypertension History of hyperlipidemia Iodine allergy NSTEMI type 2 secondary to transient hypotension Discharge Instructions: Please keep home oxygen all the time, use it while walking too Please take all the prescribed medications as directed Use the supplemental oxygen Continue inhalers or bronchodilators Engage in light activity as tolerated but avoid over exertion Consider pulmonary rehabilitation to improve breathing techniques and endurance Practice person lip breathing to reduce shortness of breath And avoid environmental triggers like smoke, dust, strong odors and extreme temperatures Stable hydrated to help loosen mucus Get influenza, pneumonia and COVID-19 vaccines as recommended Wash hands frequently and avoid sick contacts Seek medical attention for any signs of infection like fever, increased cough or worsening shortness of breath Eat small, frequent meals if feeling fatigued while eating. Set up an appointment with the pulmonology and perform lung function test to see where you are at. Home Medications: Active Scripts Losartan Potassium (Cozaar) 50 Mg Tablet, 50 MG PO DAILY, #60 TAB Prov:ALANA LEE DEHAIRER 04/20/24 Diltiazem HCl (Cardizem Cd 120 mg) 120 Mg Cap.er.24h, 120 MG PO DAILY, #60 CAPSULE.DR Prov:ALANA LEE DEHAIRER 04/20/24 Reported Medications Levalbuterol Tartrate (Levalbuterol Tartrate Hfa) 45 Mcg/Actuation Hfa.aer.ad, 2 PUFF IH Q4H for 30 Days, #15 GM 0 Refills 12/19/24 Fluticasone Propion/Salmeterol (Fluticasone-Salmeterol 250-50) 250 Mcg-50 Mcg/Dose Blst.w.dev, 1 PUFF IH BID for 30 Days, #60 EACH 0 Refills /25 Prasugrel HCl (Prasugrel HCl) 10 Mg Tablet, 10 MG PO DAILY, TAB 12/18/24 Rosuvastatin Calcium (Rosuvastatin Calcium) 40 Mg Tablet, 40 MG PO DAILY, TAB 04/18/24 Isosorbide Mononitrate (Isosorbide Mononitrate ER) 30 Mg Tab.er.24h, 30 MG PO DAILY, TAB 04/18/24 Ranolazine (Ranolazine ER) 1,000 Mg Tab.er.12h, 1000 MG PO BID, TAB 06/30/22 Duloxetine HCl (Duloxetine HCl) 30 Mg Capsule.dr, 30 MG PO HS, CAP 06/30/22 Nitroglycerin (Nitrostat) 0.4 Mg Tab.subl, 0.4 MG SL AD, TAB.SL 09/06/16 Furosemide (Lasix) 20 Mg Tablet, 20 MG PO DAILY, TAB 09/06/16 Aspirin (ASPIRIN 81 MG ECTAB) 81 Mg Ectab, 81 MG PO DAILY, TAB.EC 09/06/16 Discontinued Reported Medications Famotidine (Famotidine) 20 Mg Tablet, 20 MG PO HS, TAB 06/30/22 [advair] No Conflict Check, 2 PUFF IH BID PRN for SHORTNESS OF BREATH/WHEEZING 06/30/22 Nintedanib Esylate (Ofev) 100 Mg Capsule, 100 MG PO BID, CAP 06/30/22 Cetirizine HCl (Cetirizine HCl) 10 Mg Tablet, 10 MG PO AM, TAB 06/30/22 Albuterol Sulfate (Proair Hfa) 8.5 Gm Hfa.aer.ad, 2 PUFF IH AD 06/23/21 Rosuvastatin Calcium (Rosuvastatin Calcium) 40 Mg Tablet, 40 MG PO AM, TAB 04/20/21 Pantoprazole Sodium (Pantoprazole Sodium) 40 Mg Tablet.dr, 40 MG PO AM, TAB 09/06/16 Clopidogrel Bisulfate (Clopidogrel) 75 Mg Tablet, 75 MG PO AM, TAB 09/06/16 Tamsulosin HCl (Flomax) 0.4 Mg/Cap Cap.er.24h, 0.4 MG PO DAILY, CAPSULE.DR 09/06/16 Discontinued Scripts Ticagrelor (Brilinta) 90 Mg Tablet, 90 MG PO BID, #60 TAB Prov:ALANA LEE DEHAIRER 04/20/24 Benzonatate (Tessalon Perles) 100 Mg Cap, 100 MG PO TID PRN for COUGH for 7 Days, #21 CAP 0 Refills Prov:CAROLINE RAMOS DO 08/26/23 Continued Medications: Aspirin (Aspirin 81 Mg Ectab) 81 Mg Ectab 81 MG PO DAILY, TAB.EC Diltiazem HCl (Cardizem Cd 120 mg) 120 Mg Cap.er.24h 120 MG PO DAILY, #60 CAPSULE.DR Duloxetine HCl (Duloxetine HCl) 30 Mg Capsule.dr 30 MG PO HS, CAP Fluticasone Propion/Salmeterol (Fluticasone-Salmeterol 250-50) 250 Mcg-50 Mcg/ Dose Blst.w.dev 1 PUFF IH BID for 30 Days, #60 EACH 0 Refills Furosemide (Lasix) 20 Mg Tablet 20 MG PO DAILY, TAB Isosorbide Mononitrate (Isosorbide Mononitrate ER) 30 Mg Tab.er.24h 30 MG PO DAILY, TAB Levalbuterol Tartrate (Levalbuterol Tartrate Hfa) 45 Mcg/Actuation Hfa.aer.ad 2 PUFF IH Q4H for 30 Days, #15 GM 0 Refills Losartan Potassium (Cozaar) 50 Mg Tablet 50 MG PO DAILY, #60 TAB Nitroglycerin (Nitrostat) 0.4 Mg Tab.subl 0.4 MG SL AD, TAB.SL Prasugrel HCl (Prasugrel HCl) 10 Mg Tablet 10 MG PO DAILY, TAB Ranolazine (Ranolazine ER) 1,000 Mg Tab.er.12h 1000 MG PO BID, TAB Rosuvastatin Calcium (Rosuvastatin Calcium) 40 Mg Tablet 40 MG PO DAILY, TAB Time spent arranging discharge: 1-30 minutes ATTESTATION BY PHYSICIAN I have seen and examined the patient. I reviewed the documentation, medical decision making, and treatment plan as noted by the mid-level provider above. I agree with the findings and plan of care. Estuardo Mccauley MD, KEERTI K MD Dec 21, 2024 15:29
--- NOTE | 2024-12-21 16:35 | PN ---
[facility] PROGRESS NOTE Date Patient Seen: Dec 21, 2024 Time of Visit: 16:34 Supervising Physician: [Dr. Fish] Primary Care Physician: [Dr. Ortega] Outpatient Specialists: [Dr. Dejesus, Dr. Zaire Watt] [facility] PROBLEM LIST: Acute on chronic hypoxic respiratory failure on supplemental oxygen at 5L Atypical chest pain, r/o ACS, PE Suspected pulmonary embolus, indeterminant per V/Q NSTEMI, type 1 vs type 2 Acute hypotension, possible polypharmacy with multiple blood pressure medications Essential hypertension Former smoker Plan: Follow cardiology recommendation Continue eliquis Supplemental oxygen as needed, baseline 3L Obtain sputum culture Continue solumedrol Nebulizer prn BP management per primary/cardio Further management per primary INTERVAL HISTORY: [Patient's chest pain is improved. His V/Q scan is indeterminant for PE. Venous doppler is negative for DVT. The patient has been started on eliquis 10mg BID for treatment of PE and stopped heparin. Primary is considering a CTA for confirmation of PE. The patient has an allergy to iodine. When asked about his allergy, patient admitted having systemic rash, diaphoresis and tachycardia but denied any swelling of throat or anaphylaxis. He was unclear of his symptoms as it was a long time ago. Patient is recommended to continue eliquis as treatment for PE X 3 months and reevaluate his need for anticoagulation at that time. Cardiology is not recommending CAD workup at this time. 12/21 Patient is evaluated at bedside. He underwent a CTA this AM and was negative for PE. Patient's chest pain is resolved. Respiratory symptoms back at baseline. Given no confirmed pulmonary embolus on VQ scan and CTA chest, will recommend no anticoagulation. Patient is otherwise feeling well with no complaints. Discussed the case with my attending and with the primary team and they are in agreement with the plan. REVIEW OF SYSTEMS: 12 point ROS reviewed with patient. Pertinent positives mentioned above. Otherwise negative. PHYSICAL EXAM: GENERAL: alert, weak, awake oriented x 3 HEENT: EOMI, Sclera non icteric, moist mucosa NECK: Supple, no JVD, trachea midline LUNGS: Clear breath sounds bilaterally. No wheezes HEART: Regular rate and rhythm. Normal S1 and S2, without murmurs ABD: Abdomen soft, nontender. Bowel sounds present EXT: No clubbing cyanosis or edema NEURO: Alert and oriented to person, follows commands Vital Signs (last 8hr) Date Time Temp Pulse Resp B/P (MAP) Pulse Ox O2 Delivery O2 Flow Rate FiO2 12/21/24 12:00 97.5 73 19 104/64 93 Room Air 0.0 12/21/24 12:00 98.1 84 16 116/71 95 Room Air 0.0 12/21/24 09:00 87 Room Air* 0 21 LABS: Hematology Labs: Test 12/21/24 03:33 Range/Units White Blood Count 15.1 #H 4.8-10.8 K/uL Red Blood Count 4.24 L 4.50-6.20 MIL/uL Hemoglobin 14.1 14.0-18.0 g/dL Hematocrit 40.6 L 42-54 % Mean Corpuscular Volume 95.8 79-99 fL Mean Corpuscular Hemoglobin 33.3 H 27.0-33.0 pg Mean Corpuscular Hemoglobin Concent 34.7 32.0-36.0 g/dL Red Cell Distribution Width 13.0 11.0-15.5 % Platelet Count 200 130-400 K/uL Mean Platelet Volume 9.6 7.5-10.5 fL Immature Granulocyte % (Auto) 0.8 0-1 % Neutrophils (%) (Auto) 88.3 H 40.0-77.0 % Lymphocytes (%) (Auto) 9.1 L 21.0-51.0 % Monocytes (%) (Auto) 1.7 L 3.0-13.0 % Eosinophils (%) (Auto) 0.0 0.0-8.0 % Basophils (%) (Auto) 0.1 0.0-5.0 % Neutrophils # (Auto) 13.4 H 1.8-7.7 K/uL Lymphocytes # (Auto) 1.4 1.0-4.8 K/uL Monocytes # (Auto) 0.3 0.1-1.0 K/uL Eosinophils # (Auto) 0.00 0.00-0.70 K/uL Basophils # (Auto) 0.02 0.00-0.20 K/uL Absolute Immature Granulocyte (auto 0.12 0-1 K/uL Nucleated Red Blood Cells 0.0 0.0-0.19 % White Cell Morphology Comment CONSISTENT W/DIFF Chemistry Labs: Test 12/21/24 03:33 12/20/24 04:39 Range/Units Sodium Level 139 136-145 mmol/L Potassium Level 3.9 3.5-5.1 mmol/L Chloride Level 105 101-111 mmol/L Carbon Dioxide Level 29 21-32 mmol/L Blood Urea Nitrogen 19 H 7-18 mg/dL Creatinine 0.7 0.5-1.3 mg/dL Glomerular Filtration Rate Calc 97 >90 mL/min Random Glucose 159 H 70-105 mg/dL Total Calcium 8.3 L 8.5-10.1 mg/dL Magnesium Level 2.00 1.80-2.40 mg/dL Coagulation Labs: Test 12/20/24 07:32 Range/Units Activated Partial Thromboplast Time 70.3 H 26.3-35.5 SEC DIAGNOSTICS / RADIOLOGY RESULTS: [ ] PLAN NEURO: Minimize central acting medications as possible. Maintain fall precautions, adequate lighting during the day PULMONARY: Supplemental 02 as needed. Maintain aspiration precautions at all times CARDIOVASCULAR: Follow hemodynamics. Vital signs per facility protocol GI & NUTRITION: Continue with nutritional support. Continue stool softeners and laxatives as needed. KIDNEYS & ELECTROLYTES: Strict monitoring of intake, output and overall fluid balance. Avoid nephrotoxic medications to the extent possible. Medications to be dosed according to renal function. Monitor electrolytes and replace as needed ENDOCRINE: Maintain blood glucose between 100-180 at all times. Hypoglycemia protocol in place INFECTIOUS DISEASE: Trend temperature, WBC and procalcitonin level Follow cultures, deescalate antibiotics as soon as possible. Panculture if new onset fever ONCOLOGY/HEMATOLOGY/COAGULATION: Monitor for s/s of bleeding Monitor hemoglobin, coagulation studies as needed SKIN: Pressure ulcer prevention per facility protocol Specialty mattress ORTHO/REHAB: Continue PT/OT Prophylaxis: Continue GI and DVT prophylaxis Code Status: Full Resuscitation Disposition: TBD Other: Total patient care time exceeds 35 minutes excluding all procedures. ELIZABETH GRIFFITHS Dec 21, 2024 16:35
--- NOTE | 2024-12-21 16:55 | NUR ---
CLARIFICATION OF ELIQUIS. A/P WENDY MANCUSO AND DR FORTE. NO NEED FOR ELIQUIS ON D/C HE DID NOT HAVE A PE A/P CTA. FMAILY AND PT REQUESTING PAPERWORK STATING HE WAS GIVEN IODINE HE NEEDS TO SHOW IT TO IMMIGRATION HE GETS PULLED OVER D/T GIVEN IODINE
--- NOTE | 2024-12-21 17:11 | NUR ---
D/C PAPERWORK GIVEN AND ACKNOWLEDGED. IV LINES REMOVED
[2024-12-27] MEDS ORDERED: APIXaban 5 MG TABLET PO SCH (09:00)
== END 2024-12-21 17:25 | disposition home or self-care (01) | DRG 189 ==
LOC: EDH 11:05 → EDHIP 16:29 → 4AH 12-19 16:38
PROVIDERS: ADMIT Internal Medicine; ATTEND Internal Medicine
DX: J96.21 Acute and chronic respiratory failure with hypoxia (principal); I21.A1 Myocardial infarction type 2; I50.32 Chronic diastolic (congestive) heart failure; I11.0 Hypertensive heart disease with heart failure; I95.2 Hypotension due to drugs; E78.5 Hyperlipidemia, unspecified; J84.10 Pulmonary fibrosis, unspecified; I25.10 Atherosclerotic heart disease of native coronary artery without angina pectoris; I34.81 Nonrheumatic mitral (valve) annulus calcification; N40.0 Benign prostatic hyperplasia without lower urinary tract symptoms; I25.2 Old myocardial infarction; Z87.891 Personal history of nicotine dependence
CPT/HCPCS: 36415; 36600; 71045; 71270; 76770; 78579; 80048; 80053; 81003; 82435; 82803; 82947; 82948; 83036; 83605; 83735; 83880; 84132; 84295; 84484; 85018; 85025; 85027; 85378; 85610; 85730; 87071; 87086; 87186; 87205; 93005; 93306; 93356; 93970; 94640; 94664; 96374; 96375; 99285; A9558; G0378; J1200; J1644; J2270; J2405; J2919; J3475; J3490; J7030; Q9967